=== PATIENT | male | born 1970 | race Caucasian/White ===

== ENCOUNTER → 2017-03-25 15:09 | Outpatient (CLI) | payer BC, SELFPAY ==
[2017-03-25 19:05] LABS: ALB/GLOB Ratio 0.9 RATIO (0.9-2.4); AST(SGOT) 24 U/L (15-37); Alanine Aminotransfer ALT/SGPT 38 U/L (16-61); Albumin, Serum 3.5 g/dL (3.2-5.0); Alkaline Phosphatase 73 U/L (45-117); Anion Gap 10 (5-15); BUN 13 mg/dL (7-18); BUN/Creat Ratio 13.8 RATIO (10-20); Chloride 104 mmol/L (98-107); Creatinine, Serum 0.94 mg/dL (0.70-1.30); EST Glomerular Filtration Rate 92 mL/min (>60); Est Glom Filt Rate - Afr Amer 112 mL/min (>60); Globulin 3.9 g/dL (2.2-4.2); Glucose 106 mg/dL (74-106); Potassium 3.7 mmol/L (3.5-5.1); Protein, Total 7.4 g/dL (6.4-8.2); Sodium Level 139 mmol/L (136-145)
[2017-03-25 19:13] LABS: Absolute Lymphocyte Count 4.06 X10^3/ul (0.83-4.51); Absolute Neutrophil Count 5.9 X10^3/uL (2.0-7.7); Basophil# 0.08 X10^3/uL; Basophil% 0.7 % (0-1); Eosinophil# 0.37 X10^3/uL; Eosinophils% 3.2 % (0-5); Hematocrit 45.9 % (40-54); Hemoglobin 15.7 g/dl (13.0-16.5); Lymphocyte # 4.06 X10^3/ul (4.0); Lymphocyte % 35.6 % (19-41); Mean Corp Hgb Conc 34.2 g/gl (32-36); Mean Corpuscular Hgb 28.4 pg (27.0-32.0); Mean Corpuscular Volume 83.2 fL (80-94); Mean Platelet Vol. 10.7 fl (6.2-12.0); Monocyte# 0.97 X10^3/uL; Monocyte% 8.5 % (0-10); Neutrophil % 51.8 % (47-70); Platelet Count 315 K/mm3 (150-450); RBC Distribution Width CV 14.4 % (11.6-14.6); RBC Distribution Width SD 43.7 fl (35.1-43.9); Red Blood Count 5.52 M/mm3 (4.6-6.2); White Blood Count 11.4 K/mm3 (4.4-11.0)
[2017-03-25 19:15] LABS: POSITIVE COUNT NO; POSITIVE DIFFERENTIAL NO; POSITIVE MORPHOLOGY NO
== END ==
PROVIDERS: Family Provider Family Medicine; PCP Family Medicine; Visit Provider Internal Medicine Rheumatology
DX: M06.09 Rheumatoid arthritis without rheumatoid factor, multiple sites (principal); Z79.899 Other long term (current) drug therapy; Q66.7 Congenital pes cavus; M47.897 Other spondylosis, lumbosacral region
CPT/HCPCS: 36415; 80053; 85025

== ENCOUNTER → 2017-09-09 10:20 | Outpatient (CLI) | payer BC, SELFPAY ==
[2017-09-09 12:39] LABS: Absolute Lymphocyte Count 3.08 X10^3/ul (0.83-4.51); Absolute Neutrophil Count 7.3 X10^3/uL (2.0-7.7); Basophil# 0.06 X10^3/uL; Basophil% 0.5 % (0-1); Eosinophil# 0.41 X10^3/uL; Eosinophils% 3.4 % (0-5); Hematocrit 43.7 % (40-54); Hemoglobin 15.1 g/dl (13.0-16.5); Lymphocyte # 3.08 X10^3/ul (4.0); Lymphocyte % 25.6 % (19-41); Mean Corp Hgb Conc 34.6 g/gl (32-36); Mean Corpuscular Hgb 28.9 pg (27.0-32.0); Mean Corpuscular Volume 83.6 fL (80-94); Mean Platelet Vol. 10.8 fl (6.2-12.0); Monocyte# 1.11 X10^3/uL; Monocyte% 9.2 % (0-10); Neutrophil # 7.34 X10^3/uL (2.7-7.7); Neutrophil % 61.1 % (47-70); Platelet Count 311 K/mm3 (150-450); RBC Distribution Width CV 14.6 % (11.6-14.6); RBC Distribution Width SD 44.4 fl (35.1-43.9); Red Blood Count 5.23 M/mm3 (4.6-6.2)
[2017-09-09 12:52] LABS: POSITIVE COUNT NO; POSITIVE DIFFERENTIAL NO; POSITIVE MORPHOLOGY NO
[2017-09-09 13:15] LABS: AST(SGOT) 23 U/L (15-37); Alanine Aminotransfer ALT/SGPT 32 U/L (16-61); Albumin, Serum 3.4 g/dL (3.2-5.0); Alkaline Phosphatase 71 U/L (45-117); Anion Gap 10 (5-15); BUN 9 mg/dL (7-18); BUN/Creat Ratio 10.3 RATIO (10-20); Calcium,Total 9.1 mg/dL (8.5-10.1); Chloride 107 mmol/L (98-107); Creatinine, Serum 0.87 mg/dL (0.70-1.30); EST Glomerular Filtration Rate 100 mL/min (>60); Est Glom Filt Rate - Afr Amer 121 mL/min (>60); Globulin 3.5 g/dL (2.2-4.2); Glucose 101 mg/dL (74-106); Protein, Total 6.9 g/dL (6.4-8.2); Sodium Level 144 mmol/L (136-145)
== END ==
PROVIDERS: Family Provider Family Medicine; PCP Family Medicine; Visit Provider Internal Medicine Rheumatology
DX: M06.09 Rheumatoid arthritis without rheumatoid factor, multiple sites (principal); Z79.899 Other long term (current) drug therapy; Q66.7 Congenital pes cavus; M47.897 Other spondylosis, lumbosacral region
CPT/HCPCS: 36415; 80053; 85025

== ENCOUNTER → 2017-12-02 08:19 | Outpatient (CLI) | payer BC, SELFPAY ==
[2017-12-02 10:57] LABS: Absolute Lymphocyte Count 4.51 X10^3/ul (0.83-4.51); Basophil# 0.05 X10^3/uL; Basophil% 0.4 % (0-1); Eosinophil# 0.41 X10^3/uL; Eosinophils% 3.3 % (0-5); Hematocrit 45.3 % (40-54); Hemoglobin 15.1 g/dl (13.0-16.5); Lymphocyte # 4.51 X10^3/ul (4.0); Mean Corp Hgb Conc 33.3 g/gl (32-36); Mean Corpuscular Hgb 28.4 pg (27.0-32.0); Mean Corpuscular Volume 85.2 fL (80-94); Mean Platelet Vol. 10.1 fl (6.2-12.0); Monocyte# 1.54 X10^3/uL; Monocyte% 12.3 % (0-10); Neutrophil # 5.98 X10^3/uL (2.7-7.7); Neutrophil % 47.8 % (47-70); Platelet Count 309 K/mm3 (150-450); RBC Distribution Width CV 13.8 % (11.6-14.6); RBC Distribution Width SD 42.7 fl (35.1-43.9); Red Blood Count 5.32 M/mm3 (4.6-6.2); White Blood Count 12.5 K/mm3 (4.4-11.0)
[2017-12-02 10:58] LABS: Differential Indicated SCAN CRITERIA MET; POSITIVE COUNT NO; POSITIVE DIFFERENTIAL YES; POSITIVE MORPHOLOGY NO
[2017-12-02 11:17] LABS: AST(SGOT) 21 U/L (15-37); Alanine Aminotransfer ALT/SGPT 30 U/L (16-61); Albumin, Serum 3.5 g/dL (3.2-5.0); Alkaline Phosphatase 72 U/L (45-117); Anion Gap 8 (5-15); BUN 11 mg/dL (7-18); BUN/Creat Ratio 11.9 RATIO (10-20); Chloride 100 mmol/L (98-107); Creatinine, Serum 0.92 mg/dL (0.70-1.30); EST Glomerular Filtration Rate 94 mL/min (>60); Est Glom Filt Rate - Afr Amer 114 mL/min (>60); Globulin 3.6 g/dL (2.2-4.2); Glucose 93 mg/dL (74-106); Potassium 3.6 mmol/L (3.5-5.1); Protein, Total 7.1 g/dL (6.4-8.2); Sodium Level 138 mmol/L (136-145)
[2017-12-02 11:53] LABS: Platelet Estimate A (ADEQ); Red Cell Morphology NORM C+C NORMAL (NORM C&C)
[2017-12-04 15:28] LABS: Pathologist Review Reviewed
== END ==
PROVIDERS: Family Provider Family Medicine; PCP Family Medicine; Referring Provider Internal Medicine Rheumatology; Visit Provider Internal Medicine Rheumatology
DX: M06.09 Rheumatoid arthritis without rheumatoid factor, multiple sites (principal); Z79.899 Other long term (current) drug therapy; Q66.7 Congenital pes cavus; M47.897 Other spondylosis, lumbosacral region
CPT/HCPCS: 36415; 80053; 85025

== ENCOUNTER → 2018-03-04 12:04 | Outpatient (CLI) | payer BC, SELFPAY ==
[2018-03-04 14:06] LABS: Absolute Lymphocyte Count 5.89 X10^3/ul (0.83-4.51); Absolute Neutrophil Count 9.2 X10^3/uL (2.0-7.7); Basophil# 0.05 X10^3/uL; Basophil% 0.3 % (0-1); Eosinophil# 0.35 X10^3/uL; Lymphocyte # 5.89 X10^3/ul (4.0); Lymphocyte % 34.1 % (19-41); Mean Corpuscular Hgb 28.7 pg (27.0-32.0); Mean Corpuscular Volume 84.4 fL (80-94); Mean Platelet Vol. 10.5 fl (6.2-12.0); Monocyte% 9.9 % (0-10); Neutrophil # 9.19 X10^3/uL (2.7-7.7); Neutrophil % 53.3 % (47-70); Platelet Count 351 K/mm3 (150-450); RBC Distribution Width CV 14.9 % (11.6-14.6); RBC Distribution Width SD 45.5 fl (35.1-43.9); Red Blood Count 5.57 M/mm3 (4.6-6.2); White Blood Count 17.3 K/mm3 (4.4-11.0)
[2018-03-04 14:08] LABS: Differential Indicated SCAN CRITERIA MET; POSITIVE COUNT NO; POSITIVE DIFFERENTIAL YES; POSITIVE MORPHOLOGY NO
[2018-03-04 14:15] LABS: AST(SGOT) 18 U/L (15-37); Alanine Aminotransfer ALT/SGPT 36 U/L (16-61); Albumin, Serum 3.6 g/dL (3.2-5.0); Alkaline Phosphatase 84 U/L (45-117); Anion Gap 5 (5-15); BUN 8 mg/dL (7-18); BUN/Creat Ratio 8.7 RATIO (10-20); Calcium,Total 8.7 mg/dL (8.5-10.1); Chloride 106 mmol/L (98-107); Creatinine, Serum 0.92 mg/dL (0.70-1.30); EST Glomerular Filtration Rate 94 mL/min (>60); Est Glom Filt Rate - Afr Amer 114 mL/min (>60); Globulin 3.5 g/dL (2.2-4.2); Glucose 68 mg/dL (74-106); Potassium 3.5 mmol/L (3.5-5.1); Protein, Total 7.1 g/dL (6.4-8.2); Sodium Level 142 mmol/L (136-145)
[2018-03-04 14:32] LABS: Differential Comment SCANNED
--- OUTSIDE RECORDS SUMMARY | 2018-05-06 15:56 | XMS RPT_ITS ---
:1970 Author Organization OHIP Care Team Providers Name Role Phone Alysia Reyes Attending Unavailable Alysia Reyes Referring Unavailable SHEETS CULLEN Primary Care Unavailable Alysia Reyes Attending Unavailable Vishal Reyesma Referring Unavailable SHEETS, CULLEN Primary Care Unavailable Eric, Alysia Attending Unavailable Eric, Alysia Referring Unavailable SHEETS, CULLEN Primary Care Unavailable Eric, Alysia Attending Unavailable Eric, Alysia Referring Unavailable SHEETS, CULLEN Primary Care Unavailable SHEETSCULLEN C Attending Unavailable CULLEN MELENDREZ C Referring Unavailable PROBLEMS PROBLEMS DATE TYPE CONDITION / CODE ATTENDING STATUS SOURCE 08/13/2016 Active Chronic pain SHEETS, Active [facility] syndrome / CULLEN [place] Other [place] G89.4(ICD-10) Repository 03/04/2018 Active Herpesviral SHEETS, Active [facility] vesicular [facility] dermatitis / Repository B00.1(ICD-10) 03/04/2018 Active Myalgia, SHEETS, Active [facility] unspecified site CULLEN [facility] / M79.10(ICD-10) Repository 03/04/2018 Unknown M06.09 - Alysia Reyes Active [facility] arthritis without Hospital rheumatoid Repository factor, multiple sites / M06.09(ICD-10) 03/04/2018 Unknown Z79.899 - Other Alysia Reyes Active [facility] (current[facility] drug [facility] therapy / Repository Z79.899(ICD-10) 03/04/2018 Unknown 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 - Alysia Reyes Active [facility] cavus / Hospital Q66.7(ICD-10) Repository 03/04/2018 Unknown M47.897 - Other Alysia Reeys Active [facility] spondylosis, [facility] lumbosacral Hospital region / Repository M47.897(ICD-10) PROCEDURES PROCEDURES No Procedure Records FoundRESULTS RESULTS PROGRESS Observed: 03/04/2018 Status: COMPLETED Source: [place] 3:22 PM [facility] [place] REPOSITORY HNO ID: [id number] Author: Cullen Farrukh Parvin Service: (none) Author Type: Physician Type: Progress Notes Filed: 03/06/2018 10:24 AM Note Text: Subjective The history is provided by the patient. Pt is here for f/u for multiple joint pain due to rheumatoid arthritis. He is under the care of a erp programmer, sees her regularly. Takes orencia to control his RA symptoms. He has breakthrough pain, especially in his feet b/l. He is using tramadol as needed, which helps to control the pain. He also takes mobic daily, and prednisone as needed when the pain is 9/10. 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 Pt gets occasional cold sores, would like refill of acyclovir ointment. Review of Systems Constitutional: Negative for chills, diaphoresis, fever, malaise/fatigue and weight loss. HENT: Negative for ear pain and hearing loss. Eyes: Negative for blurred vision and double vision. Respiratory: Negative for cough and shortness of breath. Cardiovascular: Negative for chest pain, palpitations and leg swelling. Gastrointestinal: Negative for constipation, diarrhea and heartburn. Genitourinary: Negative for dysuria and frequency. Musculoskeletal: Positive for back pain. Negative for falls, joint pain and myalgias. B/l foot pain Skin: Negative for itching and rash. Neurological: Negative for dizziness, weakness and headaches. Endo/Heme/Allergies: Does not bruise/bleed easily. Psychiatric/Behavioral: Negative for depression and substance abuse. The patient does not have insomnia. Objective BP 110/62 Pulse 75 Temp 36.3 ?C (97.4 ?F) (Oral) Resp 16 Ht 167.6 cm (5' 6) Wt 71.2 kg (157 lb) SpO2 98% BMI 25.34 kg/m? Physical Exam Constitutional: He is oriented to person, place, and time and well-developed, well-nourished, and in no distress. HENT: Head: Normocephalic and atraumatic. Mouth/Throat: Normal dentition. Eyes: Pupils are equal, round, and reactive to light. Conjunctivae, EOM and lids are normal. Neck: Normal range of motion and phonation normal. Neck supple. Carotid bruit is not present. No edema present. No thyroid mass and no thyromegaly present. Cardiovascular: Normal rate, regular rhythm, normal heart sounds and intact distal pulses. Exam reveals no gallop and no friction rub. No murmur heard. Pulmonary/Chest: Effort normal and breath sounds normal. He has no wheezes. He has no rales. Abdominal: Soft. Normal appearance and bowel sounds are normal. He exhibits no distension and no mass. There is no tenderness. Musculoskeletal: Normal range of motion. He exhibits no edema or tenderness. Lymphadenopathy: He has no cervical adenopathy. Neurological: He is alert and oriented to person, place, and time. He has normal motor skills. No cranial nerve deficit. Gait normal. Coordination normal. Skin: Skin is warm and dry. No rash noted. No cyanosis or erythema. Nails show no clubbing. Psychiatric: Mood, affect and judgment normal. ASSESSMENT/PLAN: 1. Rheumatoid arthritis involving multiple sites with positive rheumatoid factor (HCC) - ICD9: 714.0, ICD10: M05.79 (primary diagnosis) Continue to see erp programmer, on orencia, takes tramadol as needed for pain 2. Chronic pain syndrome - ICD9: 338.4, ICD10: G89.4 - TRAMADOL 50 MG TABLET 3. Myalgia - ICD9: 729.1, ICD10: M79.10 - CYCLOBENZAPRINE 10 MG TABLET 4. Herpes labialis - ICD9: 054.9, ICD10: B00.1 - ACYCLOVIR 5 % TOPICAL OINTMENT 5. Drug-induced erectile dysfunction - ICD9: 607.84, E980.5, ICD10: N52.2 sildanefil as needed Cullen Melendrez DO CNOV Observed: 03/04/2018 Status: COMPLETED Source: [place] 2:40 PM [facility] REPOSITORY Office Visit (TAMANNA) RANDALL RAMOS ([id number]) 1970 M Date Time Provider Department 03/04/18 2:40 PM CULLEN MELENDREZ During your visit today, we recorded the following information about you: Temperature Pulse Respiration Blood pressure 97.4 degrees 75/minute 16/minute 110/62 Weight Height 71.2 kg 1.676 m Umesh German MA 03/04/2018 3:22 PM Signed Pt presents for 6 mth fu from 09/17/17 on Hyperlidiemia and Rheumatoid Arthritis. KELSEY Talley DO 03/06/2018 10:24 AM Signed Subjective The history is provided by the patient. Pt is here for f/u for multiple joint pain due to rheumatoid arthritis. He is under the care of a erp programmer, sees her regularly. Takes orencia to control his RA symptoms. He has breakthrough pain, especially in his feet b/l. He is using tramadol as needed, which helps to control the pain. He also takes mobic daily, and prednisone as needed when the pain is 9/10. 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 Pt gets occasional cold sores, would like refill of acyclovir ointment. Review of Systems Constitutional: Negative for chills, diaphoresis, fever, malaise/fatigue and weight loss. HENT: Negative for ear pain and hearing loss. Eyes: Negative for blurred vision and double vision. Respiratory: Negative for cough and shortness of breath. Cardiovascular: Negative for chest pain, palpitations and leg swelling. Gastrointestinal: Negative for constipation, diarrhea and heartburn. Genitourinary: Negative for dysuria and frequency. Musculoskeletal: Positive for back pain. Negative for falls, joint pain and myalgias. B/l foot pain Skin: Negative for itching and rash. Neurological: Negative for dizziness, weakness and headaches. Endo/Heme/Allergies: Does not bruise/bleed easily. Psychiatric/Behavioral: Negative for depression and substance abuse. The patient does not have insomnia. Objective BP 110/62 Pulse 75 Temp 36.3 ?C (97.4 ?F) (Oral) Resp 16 Ht 167.6 cm (5' 6) Wt 71.2 kg (157 lb) SpO2 98% BMI 25.34 kg/m? Physical Exam Constitutional: He is oriented to person, place, and time and well-developed, well-nourished, and in no distress. HENT: Head: Normocephalic and atraumatic. Mouth/Throat: Normal dentition. Eyes: Pupils are equal, round, and reactive to light. Conjunctivae, EOM and lids are normal. Neck: Normal range of motion and phonation normal. Neck supple. Carotid bruit is not present. No edema present. No thyroid mass and no thyromegaly present. Cardiovascular: Normal rate, regular rhythm, normal heart sounds and intact distal pulses. Exam reveals no gallop and no friction rub. No murmur heard. Pulmonary/Chest: Effort normal and breath sounds normal. He has no wheezes. He has no rales. Abdominal: Soft. Normal appearance and bowel sounds are normal. He exhibits no distension and no mass. There is no tenderness. Musculoskeletal: Normal range of motion. He exhibits no edema or tenderness. Lymphadenopathy: He has no cervical adenopathy. Neurological: He is alert and oriented to person, place, and time. He has normal motor skills. No cranial nerve deficit. Gait normal. Coordination normal. Skin: Skin is warm and dry. No rash noted. No cyanosis or erythema. Nails show no clubbing. Psychiatric: Mood, affect and judgment normal. ASSESSMENT/PLAN: 1. Rheumatoid arthritis involving multiple sites with positive rheumatoid factor (HCC) - ICD9: 714.0, ICD10: M05.79 (primary diagnosis) Continue to see erp programmer, on orencia, takes tramadol as needed for pain 2. Chronic pain syndrome - ICD9: 338.4, ICD10: G89.4 - TRAMADOL 50 MG TABLET 3. Myalgia - ICD9: 729.1, ICD10: M79.10 - CYCLOBENZAPRINE 10 MG TABLET 4. Herpes labialis - ICD9: 054.9, ICD10: B00.1 - ACYCLOVIR 5 % TOPICAL OINTMENT 5. Drug-induced erectile dysfunction - ICD9: 607.84, E980.5, ICD10: N52.2 sildanefil as needed Cullen Melendrez DO Referring Provider: CULLEN MELENDREZ [[id number]] Allergies As of Date: 03/04/2018 (No Known Allergies) Date Reviewed: 03/04/2018 Reviewed by: Cullen Melendrez - Fully Assessed Reason for Visit: Hyperlipidemia [245] Cmt: 6 mth fu from 09/17/17 Arthritis [10] Reason For Visit History Recorded Primary Visit Diagnosis:Rheumatoid arthritis involving multiple sites with positive rheumatoid factor (HCC) [M05.79] Other Visit Diagnoses:Chronic pain syndrome [G89.4] Myalgia [M79.10] Herpes labialis [B00.1] Drug-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] Order(s):traMADol (ULTRAM) 50 mg tabletTake 1 tablet by mouth every 6 hours as needed for up to 30 days. Do not fill until 03/06/18Disp: 120 tabletRfl: 0 cyclobenzaprine (FLEXERIL) 10 mg tabletTake 1 tablet by mouth three times daily.Disp: 90 tabletRfl: 11 acyclovir (ZOVIRAX) 5 % ointmentApply 1 application to affected area five times daily.Disp: 30 gRfl: 0 Prescriptions as of 03/04/2018 Sig: TRAMADOL 50 MG TABLET Take 1 tablet by mouth every * CYCLOBENZAPRINE 10 MG TABLET Take 1 tablet by mouth three * SILDENAFIL (ANTIHYPERTENSIVE)* Take 1 tablet by mouth as nee* PREDNISONE 10 MG TABLET Take 1 tablet by mouth once d* MELOXICAM 15 MG TABLET Take 1 tablet by mouth once d* ORENCIA CLICKJECT 125 MG/ML S* ACYCLOVIR 5 % TOPICAL OINTMENT Apply 1 application to affect* Problem List As Of Date 03/04/2018 Noted Resolved Thrush [B37.0] INVALID FOR*02/13/2016 Acute laryngitis [J04.0] INVALID FOR*02/13/2016 Sore throat [J02.9] INVALID FOR*02/13/2016 Polyarticular juvenile rheumatoid arthritis, 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-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] INVALID FOR* Rheumatoid arthritis of multiple sites without *INVALID FOR*02/13/2016 Rheumatoid arthritis involving multiple sites w*INVALID FOR* Thrush, oral [B37.0] INVALID FOR*11/13/2016 Chronic pain syndrome [G89.4] INVALID FOR* Moderate cigarette smoker [F17.210] INVALID FOR* Hypertriglyceridemia [E78.1] INVALID FOR* Herpes labialis [B00.1] INVALID FOR* Visit Notes: >> Umesh Lopez Mar 04, 2018 2:55 PM Status: Signed Pt presents for 6 mth fu from 09/17/17 on Hyperlidiemia and Rheumatoid Arthritis. Umesh German MA Prescriptions ordered this encounter Disp Refills Start End TRAMADOL 50 MG TABLET 120 * 0 03/04/2018 04/03/2018 Class: Print RX Route: ORAL Sig: Take 1 tablet by mouth every 6 hours as needed for up to 30 days. Do not fill until 03/06/18 CYCLOBENZAPRINE 10 MG TABLET 90 t* 11 03/04/2018 Route: ORAL Sig: Take 1 tablet by mouth three times daily. ACYCLOVIR 5 % TOPICAL OINTMENT 30 g 0 03/04/2018 Route: TOPICAL Sig: Apply 1 application to affected area five times daily. Medications Discontinued During This Encounter sildenafil (REVATIO) 20 mg tablet 60 t* 0 02/06/2018 03/04/2018 Route: ORAL Sig: TAKE 1 TABLET BY MOUTH NEEDED. UP TO 3 TABLETS DAILY NEEDED Patient not taking: Reported on 03/04/2018 Disc: Reason for discontinue is not on file. traMADol (ULTRAM) 50 mg tablet 120 * 0 02/06/2018 03/04/2018 Class: Call Rx Cmt: Not to exceed 5 additional fills before 07/08/2018 Sig: TAKE 1 TABLET BY MOUTH EVERY 6 HOURS NEEDED Disc: Reason for discontinue is not on file. cyclobenzaprine (FLEXERIL) 10 mg tab* 90 t* 11 10/18/2016 03/04/2018 Route: ORAL Sig: Take 1 tablet by mouth three times daily. Disc: Reason for discontinue is not on file. Encounter Status:Closed by CULLEN MELENDREZ DO on 03/06/18 CBC W/DIFF, AUTOMATED Collected: 03/04/2018 Status: F Source: [place] 12:08 PM [facility] REPOSITORY TYPE CODE TESTS RESULT OUT OF RANGE REFERENCE UNITS LAB L100.1000 4.4-11.0 K/mm3 High WBC 17.3 LAB L100.1200 4.6-6.2 M/mm3 Normal RBC 5.57 LAB L100.1300 13.0-16.5 g/dl Normal HGB 16.0 LAB L100.1400 40-54 % Normal HCT 47.0 LAB L100.1500 80-94 fL Normal MCV 84.4 LAB L100.1600 27.0-32.0 pg Normal MCH 28.7 LAB L100.1700 32-36 g/gl Normal MCHC 34.0 LAB L100.1810 11.6-14.6 % High RDW CV 14.9 LAB L100.1820 35.1-43.9 fl High RDW SD 45.5 LAB L100.1900 150-450 K/mm3 Normal PLT 351 LAB L100.2000 6.2-12.0 fl Normal MPV 10.5 LAB L100.2100 47-70 % Normal NEUT% 53.3 LAB L100.2200 19-41 % Normal LY% 34.1 LAB L100.2300 0-10 % Normal MONO% 9.9 LAB L100.2400 0-5 % Normal EO% 2.0 LAB L100.2500 0-1 % Normal BASO% 0.3 LAB L100.2550 0.0-0.9 % Normal IM GRAN % 0.400 Result Comment: IG% - Immature Granulocytes (promyelocytes, myelocytes and metamyelocytes) > 1% indicates that a LEFT SHIFT is Present. LAB L100.2620 2.0-7.7 X10 3/uL High Absolute Neut 9.2 LAB L100.2720 0.83-4.51 X10 3/ul High Absolute Lymph 5.89 LAB L100.4500 Normal SMEAR COMMENT SCANNED Performed By: #### L100.0100 #### [facility] [address] [place], [address] COMPREHENSIVE METABOLIC Collected: 03/04/2018 Status: F Source: [place] [facility] 12:08 PM [facility] REPOSITORY TYPE CODE TESTS RESULT OUT OF RANGE REFERENCE UNITS LAB L501.0100 74-106 mg/dL Low GLU 68 Result Comment: Please note revised GLUCOSE reference range effective 2017. LAB L501.1000 7-18 mg/dL Normal BUN 8 LAB L501.1100 0.70-1.30 mg/dL Normal CREAT,SERUM 0.92 Result Comment: The validity of the calculated GFR AND GFRAA in patients over 70 years has not been determined. Clinical correlation is essential. LAB L501.1110 >60 mL/min Normal EST GFR 94 Result Comment: Non- GFR Calc LAB L501.1115 >60 mL/min Normal EST GFR - AA 114 Result Comment: GFR Calc LAB L501.1300 10-20 RATIO Low BUN/CRE 8.7 LAB L501.1500 6.4-8.2 g/dL Normal T PROT 7.1 LAB L501.1800 3.2-5.0 g/dL Normal ALB 3.6 LAB L501.1950 2.2-4.2 g/dL Normal GLOB 3.5 LAB L501.2000 0.9-2.4 RATIO Normal A/G 1.0 LAB L501.2200 8.5-10.1 mg/dL Normal CA 8.7 LAB L501.4100 15-37 U/L Normal AST 18 LAB L501.4305 45-117 U/L Normal ALK P 84 LAB L501.4405 16-61 U/L Normal ALT 36 LAB L501.4600 0.20-1.00 mg/dL Normal T BILI 0.80 LAB L501.5300 136-145 mmol/L Normal NA 142 LAB L501.5600 3.5-5.1 mmol/L Normal K 3.5 LAB L501.5900 98-107 mmol/L Normal CL 106 LAB L501.6100 21.0-32.0 mmol/L Normal CO2 31.0 LAB L501.6200 5-15 Normal GAP 5 Performed By: #### L500.4050 #### [facility] [address] [place], [address] CNCO Observed: 02/28/2018 Status: COMPLETED Source: [place] 12:00 AM [facility] REPOSITORY Letter Text [address] [address] Dept Dept Cullen Melendrez, DO [facility] -[address] [place] [id number] - - February 28, 2018 Randall Ramos [address] [facility] [address] 1970 Dear Randall Ramos, We missed seeing you for a scheduled appointment on 02/28/[address] Cullen Melendrez. [facility] strives to offer the best possible care for all of our patients, so we are concerned when scheduled appointments are missed. We understand that circumstances may arise which make it impossible to keep or arrive on time for a scheduled appointment. Should this happen in the future, please call us as soon as possible so we can either reschedule or cancel your appointment in a timely manner. The earlier you let us know, the more likely we can offer your appointment time to another patient. Patients who don't cancel scheduled appointments at least 24 hours in advance or who show up too late past their appointment time to be seen, are considered No Show cancellations. [facility] is committed to ensuring that our patients have access to our healthcare services. Patients who repeatedly miss scheduled appointments or routinely show up late may be released from the practice. Sincerely, Cullen Melendrez D.O. (Signed electronically to expedite mailing) RULA Observed: 02/28/2018 Status: COMPLETED Source: [place] 12:00 AM [facility] REPOSITORY Telephone (AGFAMPLE) RANDALL RAMOS ([id number]) 1970 M Date Time Provider Department 02/28/18 CULLEN MELENDREZ During your visit today, we recorded the following information about you: Merari Lundberg 02/28/2018 2:20 PM Signed No Show Documentation Randall Ramos no showed for an appointment on 02/28/18 with Cullen Melendrez DO at 1:20 pm. He was scheduled for follow up for medication review. I called and spoke with the patient regarding his missed appointment. Randall stated the reason that he missed his appointment was because forgot about appointment . Resources discussed/offered to patient: to contact the office to reschedule. No show determined to be fault of patient: Yes This is the patients first no show in the last 12 months. Patient was rescheduled for not at this time. Letter mailed : Yes Line Maintainer Section/coordinator and/or ombudsman contacted : No Merari Gannoncheryltyler February 28, 2018 2:17 PM Cullen Melendrez DO 02/28/2018 2:38 PM Signed Please notify pt that he will need to be seen before he can get refill of tramadol thanks Cullen Melendrez DO Allergies As of Date: 02/28/2018 (No Known Allergies) Date Reviewed: 09/17/2017 Reviewed by: Cullen Melendrez - Fully Assessed Reason for Visit: Missed Appointment [1304] Prescriptions as of 02/28/2018 Sig: TRAMADOL 50 MG TABLET TAKE 1 TABLET BY MOUTH EVERY * SILDENAFIL (ANTIHYPERTENSIVE)* TAKE 1 TABLET BY MOUTH NEE* SILDENAFIL (ANTIHYPERTENSIVE)* Take 1 tablet by mouth as nee* PREDNISONE 10 MG TABLET Take 1 tablet by mouth once d* CYCLOBENZAPRINE 10 MG TABLET Take 1 tablet by mouth three * MELOXICAM 15 MG TABLET Take 1 tablet by mouth once d* ORENCIA CLICKJECT 125 MG/ML S* Problem List As Of Date 02/28/2018 Noted Resolved Thrush [B37.0] INVALID FOR*02/13/2016 Acute laryngitis [J04.0] INVALID FOR*02/13/2016 Sore throat [J02.9] INVALID FOR*02/13/2016 Polyarticular juvenile rheumatoid arthritis, 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-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] INVALID FOR* Rheumatoid arthritis of multiple sites without *INVALID FOR*02/13/2016 Rheumatoid arthritis involving multiple sites w*INVALID FOR* Thrush, oral [B37.0] INVALID FOR*11/13/2016 Chronic pain syndrome [G89.4] INVALID FOR* Moderate cigarette smoker [F17.210] INVALID FOR* Hypertriglyceridemia [E78.1] INVALID FOR* Encounter Status:Closed by MERARI LUNDBERG on 02/28/18 OBSOLETE Observed: 02/05/2018 Status: COMPLETED Source: [place] 12:00 AM [facility] REPOSITORY Refill (AGFAMPLE) RANDALL RAMOS ([id number]) 1970 M Date Time Provider Department 02/05/18 CULLEN MELENDREZ During your visit today, we recorded the following information about you: Umesh German MA 02/06/2018 7:21 AM Signed Last ov 09/17/17. . Last filled 01/08/18. Pharmacy electronically requests the following refill(s) Pending Prescriptions Disp Refills TRAMADOL 50 MG TABLET 120 tablet 0 Sig: TAKE 1 TABLET BY MOUTH EVERY 6 HOURS NEEDED NELI Class: C-IV MIKKI: Yes SILDENAFIL (ANTIHYPERTENSIVE) 20 MG TABLET 60 tablet 0 Sig: TAKE 1 TABLET BY MOUTH NEEDED. UP TO 3 TABLETS DAILY NEEDED MIKKI: Yes KELSEY Talley DO 02/06/2018 7:36 PM Signed Please call in tramDO Umesh Durán MA 02/07/2018 7:22 AM Signed Rx phoned in. Umesh German MA Allergies As of Date: 02/05/2018 (No Known Allergies) Date Reviewed: 09/17/2017 Reviewed by: Cullen Melendrez - Fully Assessed Reason for Visit: Refill Request [94] Visit Diagnoses:Chronic pain syndrome [G89.4] Drug-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] Order(s):traMADol (ULTRAM) 50 mg tabletTAKE 1 TABLET BY MOUTH EVERY 6 HOURS NEEDEDDisp: 120 tabletRfl: 0 sildenafil (REVATIO) 20 mg tabletTAKE 1 TABLET BY MOUTH NEEDED. UP TO 3 TABLETS DAILY NEEDEDDisp: 60 tabletRfl: 0 Prescriptions as of 02/05/2018 Sig: SILDENAFIL (ANTIHYPERTENSIVE)* TAKE 1 TABLET BY MOUTH NEE* TRAMADOL 50 MG TABLET TAKE 1 TABLET BY MOUTH EVERY * CYCLOBENZAPRINE 10 MG TABLET Take 1 tablet by mouth three * MELOXICAM 15 MG TABLET Take 1 tablet by mouth once d* ORENCIA CLICKJECT 125 MG/ML S* PREDNISONE 10 MG TABLET Take 1 tablet by mouth once d* SILDENAFIL (ANTIHYPERTENSIVE)* Take 1 tablet by mouth as nee* Problem List As Of Date 02/05/2018 Noted Resolved Thrush [B37.0] INVALID FOR*02/13/2016 Acute laryngitis [J04.0] INVALID FOR*02/13/2016 Sore throat [J02.9] INVALID FOR*02/13/2016 Polyarticular juvenile rheumatoid arthritis, 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-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] INVALID FOR* Rheumatoid arthritis of multiple sites without *INVALID FOR*02/13/2016 Rheumatoid arthritis involving multiple sites w*INVALID FOR* Thrush, oral [B37.0] INVALID FOR*11/13/2016 Chronic pain syndrome [G89.4] INVALID FOR* Moderate cigarette smoker [F17.210] INVALID FOR* Hypertriglyceridemia [E78.1] INVALID FOR* Prescriptions ordered this encounter Disp Refills Start End TRAMADOL 50 MG TABLET 120 * 0 02/06/2018 03/08/2018 Class: Call Rx Cmt: Not to exceed 5 additional fills before 07/08/2018 Sig: TAKE 1 TABLET BY MOUTH EVERY 6 HOURS NEEDED SILDENAFIL (ANTIHYPERTENSIVE) 20 MG * 60 t* 0 02/06/2018 Route: ORAL Sig: TAKE 1 TABLET BY MOUTH NEEDED. UP TO 3 TABLETS DAILY NEEDED Medications Discontinued During This Encounter traMADol (ULTRAM) 50 mg tablet 120 * 0 01/08/2018 02/06/2018 Class: Print RX Cmt: Not to exceed 5 additional fills before 06/04/2018 Sig: TAKE 1 TABLET BY MOUTH EVERY 6 HOURS NEEDED Disc: Reason for discontinue is not on file. Encounter Status:Closed by UMESH GERMAN MA on 02/07/18 OBSOLETE Observed: 01/08/2018 Status: COMPLETED Source: [place] 12:00 AM [facility] REPOSITORY Refill (AGFAMPLE) RANDALL RAMOS ([id number]) 1970 M Date Time Provider Department 01/08/18 CULLEN MELENDREZ During your visit today, we recorded the following information about you: Karl Jennings CMA 01/08/2018 4:23 PM Signed Has OV 02/28/18. Last rx 12/06/17 Pharmacy electronically requests the following refill(s) Pending Prescriptions Disp Refills TRAMADOL 50 MG TABLET 120 tablet 0 Sig: TAKE 1 TABLET BY MOUTH EVERY 6 HOURS NEEDED NELI Class: C-IV MIKKI: Yes JUICE Washington DO 01/08/2018 6:39 PM Signed Please call in tramadol DO Karl Wadsworth CMA 01/09/2018 8:31 AM [facility]igned [facility] Allergies As of Date: 01/08/2018 (No Known Allergies) Date Reviewed: 09/17/2017 Reviewed by: Cullen Melendrez - Fully Assessed Reason for Visit: Refill Request [94] Primary Visit Diagnosis:Chronic pain syndrome [G89.4] Order(s):traMADol (ULTRAM) 50 mg tabletTAKE 1 TABLET BY MOUTH EVERY 6 HOURS NEEDEDDisp: 120 tabletRfl: 0 Prescriptions as of 01/08/2018 Sig: TRAMADOL 50 MG TABLET TAKE 1 TABLET BY MOUTH EVERY * SILDENAFIL (ANTIHYPERTENSIVE)* Take 1 tablet by mouth as nee* PREDNISONE 10 MG TABLET Take 1 tablet by mouth once d* CYCLOBENZAPRINE 10 MG TABLET Take 1 tablet by mouth three * MELOXICAM 15 MG TABLET Take 1 tablet by mouth once d* ORENCIA CLICKJECT 125 MG/ML S* Problem List As Of Date 01/08/2018 Noted Resolved Thrush [B37.0] INVALID FOR*02/13/2016 Acute laryngitis [J04.0] INVALID FOR*02/13/2016 Sore throat [J02.9] INVALID FOR*02/13/2016 Polyarticular juvenile rheumatoid arthritis, 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-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] INVALID FOR* Rheumatoid arthritis of multiple sites without *INVALID FOR*02/13/2016 Rheumatoid arthritis involving multiple sites w*INVALID FOR* Thrush, oral [B37.0] INVALID FOR*11/13/2016 Chronic pain syndrome [G89.4] INVALID FOR* Moderate cigarette smoker [F17.210] INVALID FOR* Hypertriglyceridemia [E78.1] INVALID FOR* Prescriptions ordered this encounter Disp Refills Start End TRAMADOL 50 MG TABLET 120 * 0 01/08/2018 02/07/2018 Class: Print RX Cmt: Not to exceed 5 additional fills before 06/04/2018 Sig: TAKE 1 TABLET BY MOUTH EVERY 6 HOURS NEEDED Encounter Status:Closed by KARL JENNINGS on 01/09/18 CNCO Observed: 12/23/2017 Status: COMPLETED Source: [place] 12:00 AM [facility] REPOSITORY Letter Text [address] [address] Dept Dept Cullen Melendrez DO [facility] -[address] [place] [id number] - - [address] [place] [address] 2017 Randall Ramos [address] [facility] [address] 1970 Dear Randall Ramos, We missed seeing you for a scheduled appointment on 12/23/[address] Melendrez. [facility] strives to offer the best possible care for all of our patients, so we are concerned when scheduled appointments are missed. We understand that circumstances may arise which make it impossible to keep or arrive on time for a scheduled appointment. Should this happen in the future, please call us as soon as possible so we can either reschedule or cancel your appointment in a timely manner. The earlier you let us know, the more likely we can offer your appointment time to another patient. Patients who don't cancel scheduled appointments at least 24 hours in advance or who show up too late past their appointment time to be seen, are considered No Show cancellations. [facility] is committed to ensuring that our patients have access to our healthcare services. Patients who repeatedly miss scheduled appointments or routinely show up late may be released from the practice. Sincerely, Cullen Melendrez D.O. (Signed electronically to expedite mailing) OBSOLETE Observed: 12/05/2017 Status: COMPLETED Source: [place] 12:00 AM [facility] REPOSITORY Refill (AGFAMPLE) RANDALL RAMOS ([id number]) 1970 M Date Time Provider Department 12/05/17 CULLEN MELENDREZ During your visit today, we recorded the following information about you: Jose Belle LPN 12/05/2017 3:38 PM Signed Last visit 09-17-17 Next visit 12-23-17 Pharmacy electronically requests the following refill(s) Pending Prescriptions Disp Refills SILDENAFIL (ANTIHYPERTENSIVE) 20 MG TABLET 60 tablet 0 Sig: TAKE 1 TABLET BY MOUTH NEEDED. UP TO 3 TABLETS DAILY NEEDED MIKKI: Yes TRAMADOL 50 MG TABLET 120 tablet 0 Sig: TAKE 1 TABLET BY MOUTH EVERY 6 HOURS NEEDED FOR PAIN NELI Class: C-IV MIKKI: Yes PINEDA De La Cruz DO 12/06/2017 11:45 AM Signed Please call in DO Jose Perezo, [employer]COMES LIAISON 12/06/2017 2:26 PM Signed Called into pharmacy Jose Belle LPN Allergies As of Date: 12/05/2017 (No Known Allergies) Date Reviewed: 09/17/2017 Reviewed by: Cullen Melendrez - Fully Assessed Reason for Visit: Refill Request [94] Visit Diagnoses:Drug-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] Rheumatoid arthritis involving multiple sites with positive rheumatoid factor (HCC) [M05.79] Order(s):sildenafil (REVATIO) 20 mg tabletTake 1 tablet by mouth as needed. Up to 3 tablets daily as neededDisp: 60 tabletRfl: 0 traMADol (ULTRAM) 50 mg tabletTake 1 tablet by mouth every 6 hours as needed for up to 31 days.Disp: 120 tabletRfl: 0 Prescriptions as of 12/05/2017 Sig: SILDENAFIL (ANTIHYPERTENSIVE)* Take 1 tablet by mouth as nee* TRAMADOL 50 MG TABLET Take 1 tablet by mouth every * PREDNISONE 10 MG TABLET Take 1 tablet by mouth once d* CYCLOBENZAPRINE 10 MG TABLET Take 1 tablet by mouth three * MELOXICAM 15 MG TABLET Take 1 tablet by mouth once d* ORENCIA CLICKJECT 125 MG/ML S* Problem List As Of Date 12/05/2017 Noted Resolved Thrush [B37.0] INVALID FOR*02/13/2016 Acute laryngitis [J04.0] INVALID FOR*02/13/2016 Sore throat [J02.9] INVALID FOR*02/13/2016 Polyarticular juvenile rheumatoid arthritis, 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 Up to 3 tablets daily as needed TRAMADOL 50 MG TABLET 120 * 0 12/06/2017 01/06/2018 Class: Call Rx Cmt: Not to exceed 5 additional fills before 05/13/2018 Route: ORAL Sig: Take 1 tablet by mouth every 6 hours as needed for up to 31 days. Medications Discontinued During This Encounter sildenafil, antihypertensive, (REVAT* 60 t* 0 10/15/2017 12/06/2017 Route: ORAL Sig: Take 1 tablet by mouth as needed. Up to 3 tablets daily as needed Disc: Reason for discontinue is not on file. traMADol (ULTRAM) 50 mg tablet 120 * 0 11/14/2017 12/06/2017 Class: Call Rx Cmt: Not to exceed 5 additional fills before 04/14/2018 Sig: TAKE 1 TABLET BY MOUTH EVERY 6 HOURS FOR UP TO 30 DAYS Disc: Reason for discontinue is not on file. Encounter Status:Closed by JOSE BELLE LPN on 12/06/17 CBC W/DIFF, AUTOMATED Collected: 12/02/2017 Status: C Source: [place] 8:21 AM [facility] REPOSITORY TYPE CODE TESTS RESULT OUT OF RANGE REFERENCE UNITS LAB L100.1000 4.4-11.0 K/mm3 High WBC 12.5 LAB L100.1200 4.6-6.2 M/mm3 Normal RBC 5.32 LAB L100.1300 13.0-16.5 g/dl Normal HGB 15.1 LAB L100.1400 40-54 % Normal HCT 45.3 LAB L100.1500 80-94 fL Normal MCV 85.2 LAB L100.1600 27.0-32.0 pg Normal MCH 28.4 LAB L100.1700 32-36 g/gl Normal MCHC 33.3 LAB L100.1810 11.6-14.6 % Normal RDW CV 13.8 LAB L100.1820 35.1-43.9 fl Normal RDW SD 42.7 LAB L100.1900 150-450 K/mm3 Normal PLT 309 LAB L100.2000 6.2-12.0 fl Normal MPV 10.1 LAB L100.2100 47-70 % Normal NEUT% 47.8 LAB L100.2200 19-41 % Normal LY% 36.0 LAB L100.2300 0-10 % High MONO% 12.3 LAB L100.2400 0-5 % Normal EO% 3.3 LAB L100.2500 0-1 % Normal BASO% 0.4 LAB L100.2550 0.0-0.9 % Normal IM GRAN % 0.200 Result Comment: IG% - Immature Granulocytes (promyelocytes, myelocytes and metamyelocytes) > 1% indicates that a LEFT SHIFT is Present. LAB L100.2620 2.0-7.7 X10 3/uL Normal Absolute Neut 6.0 LAB L100.2720 0.83-4.51 X10 3/ul Normal Absolute Lymph 4.51 LAB L100.4500 SMEAR Normal COMMENT Result Comment: MONOCYTES APPEAR SLIGHTLY ELEVATED LAB L100.5500 ADEQ A Normal PLT EST LAB L100.7000 NORM C AND NORMAL C Normal RED NORM C+C CELL MORPH LAB L100.9900 Normal PATH Reviewed REV Result Comment: Leukocytosis. Clinical correlation necessary. Juan José Horton M.D. 12/04/17 AMENDED REPORT 12/04/17 1527 PATH REV previously reported as: Светлана erickson Performed By: #### L100.0100 #### [facility] [address] [place], [address] COMPREHENSIVE METABOLIC Collected: 12/02/2017 Status: F Source: [facility] 8:21 AM [facility] REPOSITORY TYPE CODE TESTS RESULT OUT OF RANGE REFERENCE UNITS LAB L501.0100 74-106 mg/dL Normal GLU 93 Result Comment: Please note revised GLUCOSE reference range effective 2017. LAB L501.1000 7-18 mg/dL Normal BUN 11 LAB L501.1100 0.70-1.30 mg/dL Normal CREAT,SERUM 0.92 Result Comment: The validity of the calculated GFR AND GFRAA in patients over 70 years has not been determined. Clinical correlation is essential. LAB L501.1110 >60 mL/min Normal EST GFR 94 Result Comment: Non- GFR Calc LAB L501.1115 >60 mL/min Normal EST GFR - AA 114 Result Comment: GFR Calc LAB L501.1300 10-20 RATIO Normal BUN/CRE 11.9 LAB L501.1500 6.4-8.2 g/dL T Normal PROT 7.1 LAB L501.1800 3.2-5.0 g/dL Normal ALB 3.5 LAB L501.1950 2.2-4.2 g/dL Normal GLOB 3.6 LAB L501.2000 0.9-2.4 RATIO Normal A/G 1.0 LAB L501.2200 8.5-10.1 mg/dL CA Normal 9.0 LAB L501.4100 15-37 U/L Normal AST 21 LAB L501.4305 45-117 U/L Normal ALK P 72 LAB L501.4405 16-61 U/L Normal ALT 30 LAB L501.4600 0.20-1.00 mg/dL High T BILI 1.80 LAB L501.5300 136-145 mmol/L NA Normal 138 LAB L501.5600 3.5-5.1 mmol/L K Normal 3.6 LAB L501.5900 98-107 mmol/L CL Normal 100 LAB L501.6100 21.0-32.0 mmol/L Normal CO2 30.0 LAB L501.6200 5-15 Normal GAP 8 Performed By: #### L500.4050 #### [facility] [address] [place], [address] OBSOLETE Observed: 11/12/2017 Status: COMPLETED Source: [place] 12:00 AM [facility] REPOSITORY Refill (AGFAMPLE) RANDALL RAMOS ([id number]) 1970 M Date Time Provider Department 11/12/17 CULLEN MELENDREZ During your visit today, we recorded the following information about you: Karl Jennings CMA 11/13/2017 8:38 AM Signed Last rx 10/15/17. Has OV 12/23/17 UDS and pain management agreement signed 09/17/17 Pharmacy electronically requests the following refill(s) Pending Prescriptions Disp Refills TRAMADOL 50 MG TABLET 120 tablet 0 Sig: TAKE 1 TABLET BY MOUTH EVERY 6 HOURS FOR UP TO 30 DAYS NELI Class: C-IV MIKKI: Yes JUICE Washington DO 11/14/2017 2:14 PM Signed Please call in tramadol thanks DO Cathy Hernandez LPN 11/14/2017 2:26 PM Signed Rx. For Tramadol called to [facility] as prescribed. Cathy Maurer LPN Allergies As of Date: 11/12/2017 (No Known Allergies) Date Reviewed: 09/17/2017 Reviewed by: Cullen Melendrez - Fully Assessed Reason for Visit: Refill Request [94] Visit Diagnosis:Rheumatoid arthritis involving multiple sites with positive rheumatoid factor (HCC) [M05.79] Order(s):traMADol (ULTRAM) 50 mg tabletTAKE 1 TABLET BY MOUTH EVERY 6 HOURS FOR UP TO 30 DAYSDisp: 120 tabletRfl: 0 Prescriptions as of 11/12/2017 Sig: TRAMADOL 50 MG TABLET TAKE 1 TABLET BY MOUTH EVERY * SILDENAFIL (ANTIHYPERTENSIVE)* Take 1 tablet by mouth as nee* PREDNISONE 10 MG TABLET Take 1 tablet by mouth once d* CYCLOBENZAPRINE 10 MG TABLET Take 1 tablet by mouth three * MELOXICAM 15 MG TABLET Take 1 tablet by mouth once d* ORENCIA CLICKJECT 125 MG/ML S* Problem List As Of Date 11/12/2017 Noted Resolved Thrush [B37.0] INVALID FOR*02/13/2016 Acute laryngitis [J04.0] INVALID FOR*02/13/2016 Sore throat [J02.9] INVALID FOR*02/13/2016 Polyarticular juvenile rheumatoid arthritis, 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-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] INVALID FOR* Rheumatoid arthritis of multiple sites without *INVALID FOR*02/13/2016 Rheumatoid arthritis involving multiple sites w*INVALID FOR* Thrush, oral [B37.0] INVALID FOR*11/13/2016 Chronic pain syndrome [G89.4] INVALID FOR* Moderate cigarette smoker [F17.210] INVALID FOR* Hypertriglyceridemia [E78.1] INVALID FOR* Prescriptions ordered this encounter Disp Refills Start End TRAMADOL 50 MG TABLET 120 * 0 11/14/2017 12/14/2017 Class: Call Rx Cmt: Not to exceed 5 additional fills before 04/14/2018 Sig: TAKE 1 TABLET BY MOUTH EVERY 6 HOURS FOR UP TO 30 DAYS Medications Discontinued During This Encounter traMADol (ULTRAM) 50 mg tablet 120 * 0 10/15/2017 11/14/2017 Class: Call Rx Route: ORAL Sig: Take 1 tablet by mouth every 6 hours as needed for up to 30 days. Disc: Reason for discontinue is not on file. Encounter Status:Closed by CATHY MAURER on 11/14/17 OBSOLETE Observed: 10/16/2017 Status: COMPLETED Source: [place] 12:00 AM [facility] REPOSITORY Refill (AGFAMPLE) RANDALL RAMOS ([id number]) 1970 M Date Time Provider Department 10/16/17 CULLEN MELENDREZ During your visit today, we recorded the following information about you: Karl Jennings CMA 10/16/2017 2:20 PM Signed Both requests addressed in another encounter. Karl Jennings CMA Allergies As of Date: 10/16/2017 (No Known Allergies) Date Reviewed: 09/17/2017 Reviewed by: Cullen Melendrez - Fully Assessed Reason for Visit: Refill Request [94] Visit Diagnoses:Drug-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] Rheumatoid arthritis involving multiple sites with positive rheumatoid factor (HCC) [M05.79] Prescriptions as of 10/16/2017 Sig: SILDENAFIL (ANTIHYPERTENSIVE)* Take 1 tablet by mouth as nee* TRAMADOL 50 MG TABLET Take 1 tablet by mouth every * PREDNISONE 10 MG TABLET Take 1 tablet by mouth once d* CYCLOBENZAPRINE 10 MG TABLET Take 1 tablet by mouth three * MELOXICAM 15 MG TABLET Take 1 tablet by mouth once d* ORENCIA CLICKJECT 125 MG/ML S* Problem List As Of Date 10/16/2017 Noted Resolved Thrush [B37.0] INVALID FOR*02/13/2016 Acute laryngitis [J04.0] INVALID FOR*02/13/2016 Sore throat [J02.9] INVALID FOR*02/13/2016 Polyarticular juvenile rheumatoid arthritis, 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-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] INVALID FOR* Rheumatoid arthritis of multiple sites without *INVALID FOR*02/13/2016 Rheumatoid arthritis involving multiple sites w*INVALID FOR* Thrush, oral [B37.0] INVALID FOR*11/13/2016 Chronic pain syndrome [G89.4] INVALID FOR* Moderate cigarette smoker [F17.210] INVALID FOR* Hypertriglyceridemia [E78.1] INVALID FOR* Encounter Status:Closed by KARL JENNINGS on 10/16/17 OBSOLETE Observed: 10/15/2017 Status: COMPLETED Source: [place] 12:00 AM [facility] REPOSITORY Refill (AGFAMPLE) RANDALL RAMOS ([id number]) 1970 M Date Time Provider Department 10/15/17 CULLEN MELENDREZ During your visit today, we recorded the following information about you: Jesus Garcia CMA 10/15/2017 5:09 PM Signed Last seen 09/17/17, last filled 09/16/17. Patient phones requesting refills as follows: Pending Prescriptions Disp Refills SILDENAFIL (ANTIHYPERTENSIVE) 20 MG TABLET 60 tablet 0 Sig: Take 1 tablet by mouth as needed. Up to 3 tablets daily as needed MIKKI: No TRAMADOL 50 MG TABLET 120 tablet 0 Sig: Take 1 tablet by mouth every 6 hours as needed for up to 30 days. NELI Class: C-IV MIKKI: No Please review and advise. JUICE Leger DO 10/15/2017 5:19 PM Signed Please call in tramadol thanks DO Karl Hernandez CMA 10/16/2017 2:13 PM [facility]igned [facility] Allergies As of Date: 10/15/2017 (No Known Allergies) Date Reviewed: 09/17/2017 Reviewed by: Cullen Melendrez - Fully Assessed Reason for Visit: Refill Request [94] Visit Diagnoses:Drug-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] Rheumatoid arthritis involving multiple sites with positive rheumatoid factor (HCC) [M05.79] Order(s):sildenafil, antihypertensive, (REVATIO) 20 mg tabletTake 1 tablet by mouth as needed. Up to 3 tablets daily as neededDisp: 60 tabletRfl: 0 traMADol (ULTRAM) 50 mg tabletTake 1 tablet by mouth every 6 hours as needed for up to 30 days.Disp: 120 tabletRfl: 0 Prescriptions as of 10/15/2017 Sig: SILDENAFIL (ANTIHYPERTENSIVE)* Take 1 tablet by mouth as nee* TRAMADOL 50 MG TABLET Take 1 tablet by mouth every * PREDNISONE 10 MG TABLET Take 1 tablet by mouth once d* CYCLOBENZAPRINE 10 MG TABLET Take 1 tablet by mouth three * MELOXICAM 15 MG TABLET Take 1 tablet by mouth once d* ORENCIA CLICKJECT 125 MG/ML S* Problem List As Of Date 10/15/2017 Noted Resolved Thrush [B37.0] INVALID FOR*02/13/2016 Acute laryngitis [J04.0] INVALID FOR*02/13/2016 Sore throat [J02.9] INVALID FOR*02/13/2016 Polyarticular juvenile rheumatoid arthritis, 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 Up to 3 tablets daily as needed TRAMADOL 50 MG TABLET 120 * 0 10/15/2017 11/14/2017 Class: Call Rx Route: ORAL Sig: Take 1 tablet by mouth every 6 hours as needed for up to 30 days. Medications Discontinued During This Encounter sildenafil, antihypertensive, (REVAT* 60 t* 0 09/17/2017 10/15/2017 Route: ORAL Sig: Take 1 tablet by mouth as needed. Up to 3 tablets daily as needed Disc: Reason for discontinue is not on file. traMADol (ULTRAM) 50 mg tablet 120 * 0 09/17/2017 10/15/2017 Class: Print RX Route: ORAL Sig: Take 1 tablet by mouth every 6 hours as needed for up to 30 days. Disc: Reason for discontinue is not on file. Encounter Status:Closed by KARL JENNINGS on 10/16/17 PROGRESS Observed: 09/17/2017 Status: COMPLETED Source: [place] 9:12 AM [facility] REPOSITORY HNO ID: [id number] Author: Cullen Melendrez Service: (none) Author Type: Physician Type: Progress Notes Filed: 09/24/2017 1:40 PM Note Text: Subjective The history is provided by the patient. Pt is here for f/u for chronic pain due to rheumatoid arthritis. He sees Dr. Reyes, erp programmer, in [place]. He ran out of tramadol over 2 weeks ago, because he was not seen here, and pain today is 8/10. Pain is primarily in his knees, feet and fingers. He has been using advil to help with the pain. He will be applying for FMLA, because he is having trouble keeping up with his job due to pain. Does not want to start on fenofibrate because he does not want to start on any meds that may interfere with his RA or RA meds. Continues to smoke. Review of Systems Constitutional: Positive for malaise/fatigue. Negative for chills, diaphoresis, fever and weight loss. HENT: Negative for ear pain and hearing loss. Eyes: Negative for blurred vision and double vision. Respiratory: Negative for cough and shortness of breath. Cardiovascular: Negative for chest pain, palpitations and leg swelling. Gastrointestinal: Negative for constipation, diarrhea and heartburn. Genitourinary: Negative for dysuria and frequency. Musculoskeletal: Positive for joint pain and myalgias. Negative for back pain and falls. Skin: Negative for itching and rash. Neurological: Negative for dizziness, weakness and headaches. Endo/Heme/Allergies: Does not bruise/bleed easily. Psychiatric/Behavioral: Negative for depression and substance abuse. The patient does not have insomnia. Objective BP 98/68 Pulse 66 Temp 36.7 ?C (98 ?F) (Oral) Resp 16 Ht 167.6 cm (5' 6) Wt 69.9 kg (154 lb) BMI 24.86 kg/m? Physical Exam Constitutional: He is oriented to person, place, and time and well-developed, well-nourished, and in no distress. HENT: Mouth/Throat: Normal dentition. Eyes: Conjunctivae, EOM and lids are normal. Pupils are equal, round, and reactive to light. Neck: Normal range of motion and phonation normal. Neck supple. Carotid bruit is not present. No edema present. No thyroid mass and no thyromegaly present. Cardiovascular: Normal rate, regular rhythm, normal heart sounds and intact distal pulses. Exam reveals no gallop and no friction rub. No murmur heard. Pulmonary/Chest: Effort normal and breath sounds normal. He has no wheezes. He has no rales. Abdominal: Soft. Normal appearance and bowel sounds are normal. He exhibits no distension and no mass. There is no tenderness. Musculoskeletal: Normal range of motion. He exhibits no edema or tenderness. Lymphadenopathy: He has no cervical adenopathy. Neurological: He is alert and oriented to person, place, and time. He has normal motor skills. No cranial nerve deficit. Gait normal. Coordination normal. Skin: Skin is warm and dry. No rash noted. No cyanosis or erythema. Nails show no clubbing. Psychiatric: Mood, affect and judgment normal. ASSESSMENT/PLAN: 1. Rheumatoid arthritis involving multiple sites with positive rheumatoid factor (HCC) - ICD9: 714.0, ICD10: M05.79 (primary diagnosis) Pt has not had tramadol for 2 weeks. Urine drug screen ordered today Pain management contract updated today PDMP reviewed with no concerns - TRAMADOL 50 MG TABLET 2. Drug-induced erectile dysfunction - ICD9: 607.84, E980.5, ICD10: N52.2 - SILDENAFIL (ANTIHYPERTENSIVE) 20 MG TABLET 3. Hypertriglyceridemia - ICD9: 272.1, ICD10: E78.1 4. Moderate cigarette smoker - ICD9: 305.1, ICD10: F17.210 - Cessation encouraged. - Physiologic and physical aspects of tobacco addiction as well as strategies for quitting were discussed. - Counseling was given focusing on the harmful effects of this addiction especially given the patient's medical condition(s) which will be worsened because of the chemicals in tobacco. 5. Chronic pain syndrome - ICD9: 338.4, ICD10: G89.4 Cullen Melendrez DO CNOV Observed: 09/17/2017 Status: COMPLETED Source: [place] 8:40 AM [facility] REPOSITORY Office Visit (AGFAMPLE) RANDALL RAMOS ([id number]) 1970 M Date Time Provider Department 09/17/17 8:40 AM CULLEN MELENDREZ During your visit today, we recorded the following information about you: Temperature Pulse Respiration Blood pressure 98 degrees 66/minute 16/minute 98/68 Weight Height 69.9 kg 1.676 m Jesus Garcia CMA 09/17/2017 8:57 AM Addendum Patient here for f/u hyperlipids. Patient states usual achy today. JUICE Leger DO 09/24/2017 1:40 PM Signed Subjective The history is provided by the patient. Pt is here for f/u for chronic pain due to rheumatoid arthritis. He sees Dr. Reyes, erp programmer, in [place]. He ran out of tramadol over 2 weeks ago, because he was not seen here, and pain today is 8/10. Pain is primarily in his knees, feet and fingers. He has been using advil to help with the pain. He will be applying for FMLA, because he is having trouble keeping up with his job due to pain. Does not want to start on fenofibrate because he does not want to start on any meds that may interfere with his RA or RA meds. Continues to smoke. Review of Systems Constitutional: Positive for malaise/fatigue. Negative for chills, diaphoresis, fever and weight loss. HENT: Negative for ear pain and hearing loss. Eyes: Negative for blurred vision and double vision. Respiratory: Negative for cough and shortness of breath. Cardiovascular: Negative for chest pain, palpitations and leg swelling. Gastrointestinal: Negative for constipation, diarrhea and heartburn. Genitourinary: Negative for dysuria and frequency. Musculoskeletal: Positive for joint pain and myalgias. Negative for back pain and falls. Skin: Negative for itching and rash. Neurological: Negative for dizziness, weakness and headaches. Endo/Heme/Allergies: Does not bruise/bleed easily. Psychiatric/Behavioral: Negative for depression and substance abuse. The patient does not have insomnia. Objective BP 98/68 Pulse 66 Temp 36.7 ?C (98 ?F) (Oral) Resp 16 Ht 167.6 cm (5' 6) Wt 69.9 kg (154 lb) BMI 24.86 kg/m? Physical Exam Constitutional: He is oriented to person, place, and time and well-developed, well-nourished, and in no distress. HENT: Mouth/Throat: Normal dentition. Eyes: Conjunctivae, EOM and lids are normal. Pupils are equal, round, and reactive to light. Neck: Normal range of motion and phonation normal. Neck supple. Carotid bruit is not present. No edema present. No thyroid mass and no thyromegaly present. Cardiovascular: Normal rate, regular rhythm, normal heart sounds and intact distal pulses. Exam reveals no gallop and no friction rub. No murmur heard. Pulmonary/Chest: Effort normal and breath sounds normal. He has no wheezes. He has no rales. Abdominal: Soft. Normal appearance and bowel sounds are normal. He exhibits no distension and no mass. There is no tenderness. Musculoskeletal: Normal range of motion. He exhibits no edema or tenderness. Lymphadenopathy: He has no cervical adenopathy. Neurological: He is alert and oriented to person, place, and time. He has normal motor skills. No cranial nerve deficit. Gait normal. Coordination normal. Skin: Skin is warm and dry. No rash noted. No cyanosis or erythema. Nails show no clubbing. Psychiatric: Mood, affect and judgment normal. ASSESSMENT/PLAN: 1. Rheumatoid arthritis involving multiple sites with positive rheumatoid factor (HCC) - ICD9: 714.0, ICD10: M05.79 (primary diagnosis) Pt has not had tramadol for 2 weeks. Urine drug screen ordered today Pain management contract updated today PDMP reviewed with no concerns - TRAMADOL 50 MG TABLET 2. Drug-induced erectile dysfunction - ICD9: 607.84, E980.5, ICD10: N52.2 - SILDENAFIL (ANTIHYPERTENSIVE) 20 MG TABLET 3. Hypertriglyceridemia - ICD9: 272.1, ICD10: E78.1 4. Moderate cigarette smoker - ICD9: 305.1, ICD10: F17.210 - Cessation encouraged. - Physiologic and physical aspects of tobacco addiction as well as strategies for quitting were discussed. - Counseling was given focusing on the harmful effects of this addiction especially given the patient's medical condition(s) which will be worsened because of the chemicals in tobacco. 5. Chronic pain syndrome - ICD9: 338.4, ICD10: G89.4 Cullen Melendrez, Referring Provider: SELF [200] Allergies As of Date: 09/17/2017 (No Known Allergies) Date Reviewed: 09/17/2017 Reviewed by: Cullen Melendrez - Fully Assessed Reason for Visit: Follow Up [171] Hyperlipidemia [245] Reason For Visit History Recorded Primary Visit Diagnosis:Rheumatoid arthritis involving multiple sites with positive rheumatoid factor (HCC) [M05.79] Other Visit Diagnoses:Drug-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] Hypertriglyceridemia [E78.1] Moderate cigarette smoker [F17.210] Chronic pain syndrome [G89.4] Prescriptions as of 09/17/2017 Sig: X SILDENAFIL (ANTIHYPERTENSIVE)* Take 1 tablet by mouth as nee* PREDNISONE 10 MG TABLET Take 1 tablet by mouth once d* CYCLOBENZAPRINE 10 MG TABLET Take 1 tablet by mouth three * MELOXICAM 15 MG TABLET Take 1 tablet by mouth once d* ORENCIA CLICKJECT 125 MG/ML S* X TRAMADOL 50 MG TABLET Take 1 tablet by mouth every * Problem List As Of Date 09/17/2017 Noted Resolved Thrush [B37.0] INVALID FOR*02/13/2016 Acute laryngitis [J04.0] INVALID FOR*02/13/2016 Sore throat [J02.9] INVALID FOR*02/13/2016 Polyarticular juvenile rheumatoid arthritis, 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 Patient states usual achy today. Jesus Garcia CMA Prescriptions ordered this encounter Disp Refills Start End TRAMADOL 50 MG TABLET 120 * 0 09/17/2017 10/15/2017 Class: Print RX Route: ORAL Sig: Take 1 tablet by mouth every 6 hours as needed for up to 30 days. SILDENAFIL (ANTIHYPERTENSIVE) 20 MG * 60 t* 0 09/17/2017 10/15/2017 Route: ORAL Sig: Take 1 tablet by mouth as needed. Up to 3 tablets daily as needed Medications Discontinued During This Encounter traMADol (ULTRAM) 50 mg tablet 120 * 0 08/06/2017 09/17/2017 Class: Call Rx Route: ORAL Sig: Take 1 tablet by mouth every 6 hours as needed for up to 30 days. Disc: Reason for discontinue is not on file. sildenafil, antihypertensive, (REVAT* 60 t* 0 07/26/2017 09/17/2017 Route: ORAL Sig: Take 1 tablet by mouth as needed. Up to 3 tablets daily as needed Disc: Reason for discontinue is not on file. fenofibrate nanocrystallized (TRICOR* 30 t* 2 08/20/2017 09/17/2017 Route: ORAL Sig: Take 1 tablet by mouth once daily. Disc: Reason for discontinue is not on file. Level of Service: EST PATIENT VISIT LEVEL 4 [[id number]] Disposition: Return in about 3 months (around 12/18/2017). Follow-up and Disposition History Recorded Encounter Status:Closed by CULLEN MELENDREZ DO on 09/24/17 CBC W/DIFF, AUTOMATED Collected: 09/09/2017 Status: F Source: [place] 10:37 AM [facility] REPOSITORY TYPE CODE TESTS RESULT OUT OF RANGE REFERENCE UNITS LAB L100.1000 4.4-11.0 K/mm3 High WBC 12.0 LAB L100.1200 4.6-6.2 M/mm3 Normal RBC 5.23 LAB L100.1300 13.0-16.5 g/dl Normal HGB 15.1 LAB L100.1400 40-54 % Normal HCT 43.7 LAB L100.1500 80-94 fL Normal MCV 83.6 LAB L100.1600 27.0-32.0 pg Normal MCH 28.9 LAB L100.1700 32-36 g/gl Normal MCHC 34.6 LAB L100.1810 11.6-14.6 % Normal RDW CV 14.6 LAB L100.1820 35.1-43.9 fl High RDW SD 44.4 LAB L100.1900 150-450 K/mm3 Normal PLT 311 LAB L100.2000 6.2-12.0 fl Normal MPV 10.8 LAB L100.2100 47-70 % Normal NEUT% 61.1 LAB L100.2200 19-41 % Normal LY% 25.6 LAB L100.2300 0-10 % Normal MONO% 9.2 LAB L100.2400 0-5 % Normal EO% 3.4 LAB L100.2500 0-1 % Normal BASO% 0.5 LAB L100.2550 0.0-0.9 % Normal IM GRAN % 0.200 Result Comment: IG% - Immature Granulocytes (promyelocytes, myelocytes and metamyelocytes) > 1% indicates that a LEFT SHIFT is Present. LAB L100.2620 2.0-7.7 X10 3/uL Normal Absolute Neut 7.3 LAB L100.2720 0.83-4.51 X10 3/ul Normal Absolute Lymph 3.08 Performed By: #### L100.0100 #### [facility] [address] [place], [place], [address] COMPREHENSIVE METABOLIC Collected: 09/09/2017 Status: F Source: [facility] 10:37 AM [facility] REPOSITORY TYPE CODE TESTS RESULT OUT OF RANGE REFERENCE UNITS LAB L501.0100 74-106 mg/dL Normal GLU 101 Result Comment: Fasting Glucose result from 100 to 125 mg/dL suggests IMPAIRED HOMEOSTASIS per A.D.A. criteria. Please note revised GLUCOSE reference range effective 2017. LAB L501.1000 7-18 mg/dL Normal BUN 9 LAB L501.1100 0.70-1.30 mg/dL Normal CREAT,SERUM 0.87 Result Comment: The validity of the calculated GFR AND GFRAA in patients over 70 years has not been determined. Clinical correlation is essential. LAB L501.1110 >60 mL/min Normal EST GFR 100 Result Comment: Non- GFR Calc LAB L501.1115 >60 mL/min Normal EST GFR - AA 121 Result Comment: GFR Calc LAB L501.1300 10-20 RATIO Normal BUN/CRE 10.3 LAB L501.1500 6.4-8.2 g/dL T Normal PROT 6.9 LAB L501.1800 3.2-5.0 g/dL Normal ALB 3.4 LAB L501.1950 2.2-4.2 g/dL Normal GLOB 3.5 LAB L501.2000 0.9-2.4 RATIO Normal A/G 1.0 LAB L501.2200 8.5-10.1 mg/dL CA Normal 9.1 LAB L501.4100 15-37 U/L Normal AST 23 LAB L501.4305 45-117 U/L Normal ALK P 71 LAB L501.4405 16-61 U/L Normal ALT 32 LAB L501.4600 0.20-1.00 mg/dL T Normal BILI 0.80 LAB L501.5300 136-145 mmol/L NA Normal 144 LAB L501.5600 3.5-5.1 mmol/L K Normal 4.0 LAB L501.5900 98-107 mmol/L CL Normal 107 LAB L501.6100 21.0-32.0 mmol/L Normal CO2 27.0 LAB L501.6200 5-15 Normal GAP 10 Performed By: #### L500.4050 #### [facility] [address] [place], [address] OBSOLETE Observed: 09/08/2017 Status: COMPLETED Source: [place] 12:00 AM [facility] REPOSITORY Refill (TAMANNA) RANDALL RAMOS ([id number]) 1970 M Date Time Provider Department 09/08/17 CULLEN MELENDREZ During your visit today, we recorded the following information about you: Jesus JUICE Garcia 09/09/2017 11:58 AM Signed Last seen 11/13/16 to f/u in 3 months with no future appointment. Pharmacy electronically requests the following refill(s) Pending Prescriptions Disp Refills PREDNISONE 10 MG TABLET 30 tablet 0 Sig: Take 1 tablet by mouth once daily. MIKKI: No Jesus Garcia CMA Allergies As of Date: 09/08/2017 (No Known Allergies) Date Reviewed: 01/21/2017 Reviewed by: Mk Baker) KAITY Cordova - Fully Assessed Reason for Visit: Refill Request [94] Visit Diagnosis:Rheumatoid arthritis involving multiple sites with positive rheumatoid factor (HCC) [M05.79] Order(s):predniSONE (DELTASONE) 10 mg tabletTake 1 tablet by mouth once daily.Disp: 30 tabletRfl: 0 Prescriptions as of 09/08/2017 Sig: PREDNISONE 10 MG TABLET Take 1 tablet by mouth once d* FENOFIBRATE NANOCRYSTALLIZED * Take 1 tablet by mouth once d* SILDENAFIL (ANTIHYPERTENSIVE)* Take 1 tablet by mouth as nee* CYCLOBENZAPRINE 10 MG TABLET Take 1 tablet by mouth three * MELOXICAM 15 MG TABLET Take 1 tablet by mouth once d* ORENCIA CLICKJECT 125 MG/ML S* Problem List As Of Date 09/08/2017 Noted Resolved Thrush [B37.0] INVALID FOR*02/13/2016 Acute laryngitis [J04.0] INVALID FOR*02/13/2016 Sore throat [J02.9] INVALID FOR*02/13/2016 Polyarticular juvenile rheumatoid arthritis, 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 Medications Discontinued During This Encounter predniSONE (DELTASONE) 10 mg tablet 30 t* 0 08/06/2017 09/09/2017 Si OR 2 TABLET(S) DAILY NEEDED Disc: Reason for discontinue is not on file. Encounter Status:Closed by CULLEN MELENDREZ DO on 09/09/17 OBSOLETE Observed: 08/29/2017 Status: COMPLETED Source: [place] 12:00 AM [facility] REPOSITORY Refill (AGFAMPLE) RANDALL RAMOS ([id number]) 1970 M Date Time Provider Department 08/29/17 CULLEN MELENDREZ AGHARSH During your visit today, we recorded the following information about you: Luisito Mckeon CMA 08/29/2017 4:26 PM Signed patient phones requesting refills as follows: Last seen 11/13/16. Last refill 08/06/17. Patient states he is going on vacation next week and will run out while gone so he needs to get new script before he goes. Patient was supposed to follow up in 3 months and has not. Left message requesting patient call office back in regards to refill request. Pending Prescriptions Disp Refills TRAMADOL 50 MG TABLET 120 tablet 0 Sig: Take 1 tablet by mouth every 6 hours as needed for up to 30 days. NELI Class: C-IV MIKKI: No Please review and advise. JUICE Sterling DO 08/30/2017 10:40 AM Signed I cannot refill this narcotic medication without patient being seen. He can make 20 min appt to be seen by me before he leaves (if we have opening) or I can give him a weaning dose of tramadol thanks DO Jesus Hernandez CMA 08/30/2017 2:00 PM Signed Unable to contact patient with no vm set up. JUICE Leger CMA 08/30/2017 3:35 PM Signed Left message instructing patient to call office for either a possible appointment on Saturday or Saturday or call for a weaning dose of medication. Jesus Garcia CMA Allergies As of Date: 08/29/2017 (No Known Allergies) Date Reviewed: 01/21/2017 Reviewed by: Mk Baker) KAITY Cordova - Fully Assessed Reason for Visit: Refill Request [94] Visit Diagnosis:Rheumatoid arthritis involving multiple sites with positive rheumatoid factor (HCC) [M05.79] Prescriptions as of 08/29/2017 Sig: FENOFIBRATE NANOCRYSTALLIZED * Take 1 tablet by mouth once d* PREDNISONE 10 MG TABLET 1 OR 2 TABLET(S) DAILY NEE* TRAMADOL 50 MG TABLET Take 1 tablet by mouth every * SILDENAFIL (ANTIHYPERTENSIVE)* Take 1 tablet by mouth as nee* CYCLOBENZAPRINE 10 MG TABLET Take 1 tablet by mouth three * MELOXICAM 15 MG TABLET Take 1 tablet by mouth once d* ORENCIA CLICKJECT 125 MG/ML S* Problem List As Of Date 08/29/2017 Noted Resolved Thrush [B37.0] INVALID FOR*02/13/2016 Acute laryngitis [J04.0] INVALID FOR*02/13/2016 Sore throat [J02.9] INVALID FOR*02/13/2016 Polyarticular juvenile rheumatoid arthritis, 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-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] INVALID FOR* Rheumatoid arthritis of multiple sites without *INVALID FOR*02/13/2016 Rheumatoid arthritis involving multiple sites w*INVALID FOR* Thrush, oral [B37.0] INVALID FOR*11/13/2016 Chronic pain syndrome [G89.4] INVALID FOR* Moderate cigarette smoker [F17.210] INVALID FOR* Hypertriglyceridemia [E78.1] INVALID FOR* Encounter Status:Closed by JESUS GARCIA on 08/30/17 OBSOLETE Observed: 08/06/2017 Status: COMPLETED Source: [place] 12:00 AM [facility] REPOSITORY Refill (AGFAMPLE) RAMOS,ROGER D ([id number]) 1970 M Date Time Provider Department 08/06/17 CULLEN MELENDREZ During your visit today, we recorded the following information about you: Jesus Garcia CMA 08/06/2017 11:08 AM Signed Last filled 07/01/17. Patient phones requesting refills as follows: Pending Prescriptions Disp Refills PREDNISONE 10 MG TABLET 30 tablet 0 Si OR 2 TABLET(S) DAILY NEEDED MIKKI: No TRAMADOL 50 MG TABLET 120 tablet 0 Sig: Take 1 tablet by mouth every 6 hours as needed for up to 30 days. NELI Class: C-IV MIKKI: No Please review and advise. JUICE Leger DO 08/06/2017 11:33 AM Signed Please call in tramadol thanks DO Jesus Hernandez CMA 08/06/2017 4:16 PM Signed Called to [facility] (lor[facility]). Jesus Garcia CMA Allergies As of Date: 08/06/2017 (No Known Allergies) Date Reviewed: 01/21/2017 Reviewed by: Mk Baker) KAITY Cordova - Fully Assessed Reason for Visit: Refill Request [94] Visit Diagnosis:Rheumatoid arthritis involving multiple sites with positive rheumatoid factor (HCC) [M05.79] Order(s):predniSONE (DELTASONE) 10 mg tablet1 OR 2 TABLET(S) DAILY NEEDEDDisp: 30 tabletRfl: 0 traMADol (ULTRAM) 50 mg tabletTake 1 tablet by mouth every 6 hours as needed for up to 30 days.Disp: 120 tabletRfl: 0 Prescriptions as of 08/06/2017 Sig: PREDNISONE 10 MG TABLET 1 OR 2 TABLET(S) DAILY NEE* TRAMADOL 50 MG TABLET Take 1 tablet by mouth every * SILDENAFIL (ANTIHYPERTENSIVE)* Take 1 tablet by mouth as nee* X AMOXICILLIN 500 MG CAPSULE Take 1 capsule by mouth three* CYCLOBENZAPRINE 10 MG TABLET Take 1 tablet by mouth three * X FLUCONAZOLE 100 MG TABLET TAKE 1 TABLET BY MOUTH ONCE D* MELOXICAM 15 MG TABLET Take 1 tablet by mouth once d* ORENCIA CLICKJECT 125 MG/ML S* Problem List As Of Date 08/06/2017 Noted Resolved Thrush [B37.0] INVALID FOR*02/13/2016 Acute laryngitis [J04.0] INVALID FOR*02/13/2016 Sore throat [J02.9] INVALID FOR*02/13/2016 Polyarticular juvenile rheumatoid arthritis, 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-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] INVALID FOR* Rheumatoid arthritis of multiple sites without *INVALID FOR*02/13/2016 Rheumatoid arthritis involving multiple sites w*INVALID FOR* Thrush, oral [B37.0] INVALID FOR*11/13/2016 Chronic pain syndrome [G89.4] INVALID FOR* Moderate cigarette smoker [F17.210] INVALID FOR* Prescriptions ordered this encounter Disp Refills Start End PREDNISONE 10 MG TABLET 30 t* 0 08/06/2017 Si OR 2 TABLET(S) DAILY NEEDED TRAMADOL 50 MG TABLET 120 * 0 08/06/2017 09/05/2017 Class: Call Rx Route: ORAL Sig: Take 1 tablet by mouth every 6 hours as needed for up to 30 days. Medications Discontinued During This Encounter predniSONE (DELTASONE) 10 mg tablet 30 t* 0 06/28/2017 08/06/2017 Si OR 2 TABLET(S) DAILY NEEDED Disc: Reason for discontinue is not on file. traMADol (ULTRAM) 50 mg tablet 120 * 0 07/01/2017 08/06/2017 Class: Call Rx Route: ORAL Sig: Take 1 tablet by mouth every 6 hours as needed for up to 30 days. Disc: Reason for discontinue is not on file. Encounter Status:Closed by JESUS GARCIA on 08/06/17 HEMOGRAM Collected: 08/01/2017 Status: F Source: [facility] 9:[facility] AM [facility] TYPE CODE TESTS RESULT OUT OF REFERENCE UNITS RANGE LAB LWBC(LOINC) 4.8-10.8 thou/cmm High WBC 14.2 LAB LRBC(LOINC) 4.60-6.20 mil/cmm RBC 5.37 LAB LHGB(LOINC) 14.0-18.0 g/dL Hgb 15.3 LAB LHCT(LOINC) 42.0-52.0 % Hct 45.6 LAB LMCV(LOINC) 80.0-94.0 fl MCV 84.9 LAB LMCH(LOINC) 27.0-31.0 pg MCH 28.5 LAB LMCHC(LOINC 32.0-36.0 % ) MCHC 33.6 LAB LRDW(LOINC) 11.5-15.9 % RDW 14.5 LAB LPLT(LOINC) 150-400 thou/cmm Platelet 306 LAB LMPV(LOINC) 7.1-10.5 fl MPV 10.3 Performed By: #### LCBC #### [facility] [address] [address] LIPID PROFILE Collected: 08/01/2017 Status: F Source: [facility] 9:13 AM [facility] REPOSITORY TYPE CODE TESTS RESULT OUT OF REFERENCE UNITS RANGE LAB LCHOL(LOIN 0-199 mg/dL C) Cholesterol Blood 164 LAB LTRIG(LOIN 0-149 mg/dL C) Triglyceride High Blood 222 LAB LHDL2(LOIN >40 mg/dL C) HDL Cholesterol 40 LAB LLDL(LOINC 0-150 mg/dL ) LDL 80 LAB LCHHD(LOIN 2.1-7.3 C) CHOL/HDL 4.1 LAB LRISK(LOIN C) Risk Factor 4.1 Result Comment: Cardiac Risk Factor The CHD risk factor is based on the total Chol/HDL ratio. Other factors affect CHD risk such as hypertension, smoking, diabetes, severe obesity and premature CHD. Cardiac Risk Total Chol/HDL ratio Men Women 1/2 avg risk 3.4-4.9 3.3-6.3 Avg risk 5.0-9.5 6.4-7.0 2x avg risk 9.6-23.3 7.1-10.9 3x avg risk >23.4 >11.0 Performed By: #### LLIPD #### [facility] [address] [address] BASIC PANEL Collected: 08/01/2017 Status: F Source: [facility] 9:13 AM [facility] REPOSITORY TYPE CODE TESTS RESULT OUT OF REFERENCE UNITS RANGE LAB BORDERER(LOINC) 136-145 mEq/L Sodium Blood 141 LAB LK(LOINC) 3.5-5.1 mEq/L Potassium Blood 4.6 LAB LCL(LOINC) 98-107 mEq/L Chloride High Blood 108 LAB LCO2(LOINC 21-32 mEq/L ) CO2 Blood 30 LAB LGLU(LOINC 70-99 mg/dL ) Glucose High Blood 100 LAB LBUN(LOINC 7-25 mg/dL ) BUN Blood 14 LAB LCREA(LOIN 0.67-1.17 mg/dL C) Creatinine Blood 0.91 LAB LCA(LOINC) 8.5-10.1 mg/dL Calcium Blood 9.1 LAB LANGP(LOIN 8-20 C) Anion Gap 8 LAB LBNCR(LOIN 10-20 C) BUN/Creatinine 15 Ratio Performed By: #### LP8 #### [place] [address] MDRD EGFR Collected: 08/01/2017 Status: F Source: [facility] 9:13 AM [facility] REPOSITORY TYPE CODE TESTS RESULT OUT OF RANGE REFERENCE UNITS LAB LGFRF(LOINC >60mL/min/1.73m ) 2 eGFR >60 Result Comment: If the patient is , multiply the result by 1.210. Performed By: #### LGFR #### [place] [address] HEMOGLOBIN A1C Collected: 08/01/2017 Status: F Source: [facility] 9:13 AM [facility] REPOSITORY TYPE CODE TESTS RESULT OUT OF REFERENCE UNITS RANGE LAB LA1C2(LOINC 4.5-6.2 % ) Hgb A1c 5.1 LAB ESAV(LOINC) mg/dl Est. Avg. 100 Glucose Performed By: #### LA1C #### [place] [address] OBSOLETE Observed: 07/25/2017 Status: COMPLETED Source: [place] 12:00 AM [facility] REPOSITORY Refill (AGFAMPLE) RANDALL RAMOS ([id number]) 1970 M Date Time Provider Department 07/25/17 CULLEN MELENDREZ During your visit today, we recorded the following information about you: Joi Lee LPN 07/25/2017 9:59 AM Signed Pharmacy calls in requesting the following refill(s): Pending Prescriptions Disp Refills PREDNISONE 10 MG TABLET 30 tablet 0 Si OR 2 TABLET(S) DAILY NEEDED MIKKI: Yes Last OV 11/13/16, last RF 06/28/17. Due for labs, pended. Past labs have been from external source. Please advise. PINEDA Pack LPN 07/25/2017 10:05 AM Signed Patient phones requesting refills as follows: Pending Prescriptions Disp Refills PREDNISONE 10 MG TABLET 30 tablet 0 Si OR 2 TABLET(S) DAILY NEEDED MIKKI: Yes SILDENAFIL (ANTIHYPERTENSIVE) 20 MG TABLET 60 tablet 0 Sig: Take 1 tablet by mouth as needed. Up to 3 tablets daily as needed MIKKI: No TRAMADOL 50 MG TABLET 120 tablet 0 Sig: Take 1 tablet by mouth every 6 hours as needed for up to 30 days. NELI Class: C-IV MIKKI: No Last OV 11/13/16, last RF sildenafil 06/11/17, last RF tramadol 07/01/17. Please see other order, as well. Please review and advise. 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 Up to 3 tablets daily as neededDisp: 60 tabletRfl: 0 Prescriptions as of 07/25/2017 Sig: SILDENAFIL (ANTIHYPERTENSIVE)* Take 1 tablet by mouth as nee* TRAMADOL 50 MG TABLET Take 1 tablet by mouth every * PREDNISONE 10 MG TABLET 1 OR 2 TABLET(S) DAILY NEE* AMOXICILLIN 500 MG CAPSULE Take 1 capsule by mouth three* CYCLOBENZAPRINE 10 MG TABLET Take 1 tablet by mouth three * FLUCONAZOLE 100 MG TABLET TAKE 1 TABLET BY MOUTH ONCE D* MELOXICAM 15 MG TABLET Take 1 tablet by mouth once d* ORENCIA CLICKJECT 125 MG/ML S* Problem List As Of Date 07/25/2017 Noted Resolved Thrush [B37.0] INVALID FOR*02/13/2016 Acute laryngitis [J04.0] INVALID FOR*02/13/2016 Sore throat [J02.9] INVALID FOR*02/13/2016 Polyarticular juvenile rheumatoid arthritis, 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 Up to 3 tablets daily as needed Medications Discontinued During This Encounter sildenafil, antihypertensive, (REVAT* 60 t* 0 06/11/2017 07/26/2017 Route: ORAL Sig: Take 1 tablet by mouth as needed. Up to 3 tablets daily as needed Disc: Reason for discontinue is not on file. Encounter Status:Closed by JOI LEE LPN on 07/26/17 OBSOLETE Observed: 07/01/2017 Status: COMPLETED Source: [place] 12:00 AM [facility] REPOSITORY Refill (AGFAMPLE) RANDALL RAMOS ([id number]) 1970 M Date Time Provider Department 07/01/17 CULLEN MELENDREZ During your visit today, we recorded the following information about you: Karl Jennings CMA 07/01/2017 3:13 PM Signed Last OV 11/2016. Last rx 06/03/17 Patient phones requesting refills as follows: Pending Prescriptions Disp Refills TRAMADOL 50 MG TABLET 120 tablet 0 Sig: Take 1 tablet by mouth every 6 hours as needed for up to 30 days. NELI Class: C-IV MIKKI: No Please review and advise. JUICE Washington DO 07/01/2017 3:44 PM Signed Please call in DO Jesus Cerna CMA 07/01/2017 4:05 PM Signed Called to [facility] (). Jesus Garcia CMA Allergies As of Date: 07/01/2017 (No Known Allergies) Date Reviewed: 01/21/2017 Reviewed by: Mk Baker) KAITY Cordova - Fully Assessed Reason for Visit: Refill Request [94] Visit Diagnosis:Rheumatoid arthritis involving multiple sites with positive rheumatoid factor (HCC) [M05.79] Order(s):traMADol (ULTRAM) 50 mg tabletTake 1 tablet by mouth every 6 hours as needed for up to 30 days.Disp: 120 tabletRfl: 0 Prescriptions as of 07/01/2017 Sig: TRAMADOL 50 MG TABLET Take 1 tablet by mouth every * PREDNISONE 10 MG TABLET 1 OR 2 TABLET(S) DAILY NEE* SILDENAFIL (ANTIHYPERTENSIVE)* Take 1 tablet by mouth as nee* AMOXICILLIN 500 MG CAPSULE Take 1 capsule by mouth three* CYCLOBENZAPRINE 10 MG TABLET Take 1 tablet by mouth three * FLUCONAZOLE 100 MG TABLET TAKE 1 TABLET BY MOUTH ONCE D* MELOXICAM 15 MG TABLET Take 1 tablet by mouth once d* ORENCIA CLICKJECT 125 MG/ML S* Problem List As Of Date 07/01/2017 Noted Resolved Thrush [B37.0] INVALID FOR*02/13/2016 Acute laryngitis [J04.0] INVALID FOR*02/13/2016 Sore throat [J02.9] INVALID FOR*02/13/2016 Polyarticular juvenile rheumatoid arthritis, 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 Medications Discontinued During This Encounter traMADol (ULTRAM) 50 mg tablet 120 * 0 06/03/2017 07/01/2017 Class: Call Rx Route: ORAL Sig: Take 1 tablet by mouth every 6 hours as needed for up to 30 days. Disc: Reason for discontinue is not on file. Encounter Status:Closed by JESUS GARCIA on 07/01/17 OBSOLETE Observed: 06/28/2017 Status: COMPLETED Source: [place] 12:00 AM [facility] REPOSITORY Refill (AGFAMPLE) RANDALL RAMOS ([id number]) 1970 M Date Time Provider Department 06/28/17 CULLEN MELENDREZ During your visit today, we recorded the following information about you: Joi Lee LPN 06/28/2017 11:27 AM Signed Pharmacy calls in requesting the following refill(s): Pending Prescriptions Disp Refills PREDNISONE 10 MG TABLET 30 tablet 0 Si OR 2 TABLET(S) DAILY NEEDED MIKKI: Yes Last OV 11/13/16, last RF 05/07/17. Please advise. Thank you. Joi Lee LPN Allergies As of Date: 06/28/2017 (No Known Allergies) Date Reviewed: 01/21/2017 Reviewed by: Mk (Rn) KAITY Cordova - Fully Assessed Reason for Visit: Refill Request [94] Order(s):predniSONE (DELTASONE) 10 mg tablet1 OR 2 TABLET(S) DAILY NEEDEDDisp: 30 tabletRfl: 0 Prescriptions as of 06/28/2017 Sig: PREDNISONE 10 MG TABLET 1 OR 2 TABLET(S) DAILY NEE* SILDENAFIL (ANTIHYPERTENSIVE)* Take 1 tablet by mouth as nee* TRAMADOL 50 MG TABLET Take 1 tablet by mouth every * AMOXICILLIN 500 MG CAPSULE Take 1 capsule by mouth three* CYCLOBENZAPRINE 10 MG TABLET Take 1 tablet by mouth three * FLUCONAZOLE 100 MG TABLET TAKE 1 TABLET BY MOUTH ONCE D* MELOXICAM 15 MG TABLET Take 1 tablet by mouth once d* ORENCIA CLICKJECT 125 MG/ML S* Problem List As Of Date 06/28/2017 Noted Resolved Thrush [B37.0] INVALID FOR*02/13/2016 Acute laryngitis [J04.0] INVALID FOR*02/13/2016 Sore throat [J02.9] INVALID FOR*02/13/2016 Polyarticular juvenile rheumatoid arthritis, 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-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] INVALID FOR* Rheumatoid arthritis of multiple sites without *INVALID FOR*02/13/2016 Rheumatoid arthritis involving multiple sites w*INVALID FOR* Thrush, oral [B37.0] INVALID FOR*11/13/2016 Chronic pain syndrome [G89.4] INVALID FOR* Moderate cigarette smoker [F17.210] INVALID FOR* Prescriptions ordered this encounter Disp Refills Start End PREDNISONE 10 MG TABLET 30 t* 0 06/28/2017 Si OR 2 TABLET(S) DAILY NEEDED Medications Discontinued During This Encounter predniSONE (DELTASONE) 10 mg tablet 30 t* 0 05/07/2017 06/28/2017 Si OR 2 TABLET(S) DAILY NEEDED Disc: Reason for discontinue is not on file. Encounter Status:Closed by CULLEN MELENDREZ DO on 06/28/17 OBSOLETE Observed: 06/11/2017 Status: COMPLETED Source: [place] 12:00 AM [facility] REPOSITORY Refill (AGFAMPLE) RANDALL RAMOS ([id number]) 1970 M Date Time Provider Department 06/11/17 CULLEN MELENDREZ During your visit today, we recorded the following information about you: Karl Jennings CMA 06/11/2017 2:52 PM Signed Last OV 11/13/16 Patient phones requesting refills as follows: Pending Prescriptions Disp Refills SILDENAFIL (ANTIHYPERTENSIVE) 20 MG TABLET 60 tablet 0 Sig: Take 1 tablet by mouth as needed. MIKKI: No Please review and advise. Karl Jennings CMA Allergies As of Date: 06/11/2017 (No Known Allergies) Date Reviewed: 01/21/2017 Reviewed by: Mk Baker) KAITY Cordova - Fully Assessed Reason for Visit: Refill Request [94] Order(s):sildenafil, antihypertensive, (REVATIO) 20 mg tabletTake 1 tablet by mouth as needed. Up to 3 tablets daily as neededDisp: 60 tabletRfl: 0 Prescriptions as of 06/11/2017 Sig: SILDENAFIL (ANTIHYPERTENSIVE)* Take 1 tablet by mouth as nee* TRAMADOL 50 MG TABLET Take 1 tablet by mouth every * PREDNISONE 10 MG TABLET 1 OR 2 TABLET(S) DAILY NEE* AMOXICILLIN 500 MG CAPSULE Take 1 capsule by mouth three* CYCLOBENZAPRINE 10 MG TABLET Take 1 tablet by mouth three * FLUCONAZOLE 100 MG TABLET TAKE 1 TABLET BY MOUTH ONCE D* MELOXICAM 15 MG TABLET Take 1 tablet by mouth once d* ORENCIA CLICKJECT 125 MG/ML S* Problem List As Of Date 06/11/2017 Noted Resolved Thrush [B37.0] INVALID FOR*02/13/2016 Acute laryngitis [J04.0] INVALID FOR*02/13/2016 Sore throat [J02.9] INVALID FOR*02/13/2016 Polyarticular juvenile rheumatoid arthritis, 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 Up to 3 tablets daily as needed Medications Discontinued During This Encounter sildenafil, antihypertensive, (REVAT* 60 t* 0 05/07/2017 06/11/2017 Sig: TAKE 1 TABLET BY MOUTH NEEDED. Disc: Reason for discontinue is not on file. Encounter Status:Closed by CULLEN MELENDREZ DO on 06/11/17 OBSOLETE Observed: 06/03/2017 Status: COMPLETED Source: [place] 12:00 AM [facility] REPOSITORY Refill (AGFAMPLE) RANDALL RAMOS ([id number]) 1970 M Date Time Provider Department 06/03/17 CULLEN MELENDREZ During your visit today, we recorded the following information about you: Karl Jennings CMA 06/03/2017 1:55 PM Signed Pt last OV 11/2016. Last rx 04/29/17 Patient phones requesting refills as follows: Pending Prescriptions Disp Refills TRAMADOL 50 MG TABLET 120 tablet 0 Sig: Take 1 tablet by mouth every 6 hours as needed for up to 30 days. NELI Class: C-IV MIKKI: No Please review and advise. Karl Jennings CMA Cullenshalini Melendrez 06/03/2017 4:53 PM Signed Please call in tramadol thanks Cullenshalini MelendrezDO Jesus JUICE Garcia 06/03/2017 5:21 PM Signed Called to TONY (lorraine). Dianaadonis Garcia CMA Allergies As of Date: 06/03/2017 (No Known Allergies) Date Reviewed: 01/21/2017 Reviewed by: Mk (Rn) KAITY Cordova - Fully Assessed Reason for Visit: Refill Request [94] Visit Diagnosis:Rheumatoid arthritis involving multiple sites with positive rheumatoid factor (HCC) [M05.79] Order(s):traMADol (ULTRAM) 50 mg tabletTake 1 tablet by mouth every 6 hours as needed for up to 30 days.Disp: 120 tabletRfl: 0 Prescriptions as of 06/03/2017 Sig: TRAMADOL 50 MG TABLET Take 1 tablet by mouth every * PREDNISONE 10 MG TABLET 1 OR 2 TABLET(S) DAILY NEE* SILDENAFIL (ANTIHYPERTENSIVE)* TAKE 1 TABLET BY MOUTH NEE* AMOXICILLIN 500 MG CAPSULE Take 1 capsule by mouth three* CYCLOBENZAPRINE 10 MG TABLET Take 1 tablet by mouth three * FLUCONAZOLE 100 MG TABLET TAKE 1 TABLET BY MOUTH ONCE D* MELOXICAM 15 MG TABLET Take 1 tablet by mouth once d* ORENCIA CLICKJECT 125 MG/ML S* Problem List As Of Date 06/03/2017 Noted Resolved Thrush [B37.0] INVALID FOR*02/13/2016 Acute laryngitis [J04.0] INVALID FOR*02/13/2016 Sore throat [J02.9] INVALID FOR*02/13/2016 Polyarticular juvenile rheumatoid arthritis, 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 Medications Discontinued During This Encounter traMADol (ULTRAM) 50 mg tablet 120 * 0 04/30/2017 06/03/2017 Class: Call Rx Route: ORAL Sig: Take 1 tablet by mouth every 6 hours as needed for up to 30 days. Disc: Reason for discontinue is not on file. Encounter Status:Closed by JESUS GARCIA on 06/03/17 OBSOLETE Observed: 05/06/2017 Status: COMPLETED Source: [place] 12:00 AM [facility] REPOSITORY Refill (AGFAMPLE) RANDALL RAMOS ([id number]) 1970 M Date Time Provider Department 05/06/17 CULLEN MELENDREZ During your visit today, we recorded the following information about you: Karl Jennings CMA 05/07/2017 8:24 AM Signed Last OV 11/13/16 Pharmacy electronically requests the following refill(s) Pending Prescriptions Disp Refills PREDNISONE 10 MG TABLET 30 tablet 0 Si OR 2 TABLET(S) DAILY NEEDED MIKKI: Yes SILDENAFIL (ANTIHYPERTENSIVE) 20 MG TABLET 60 tablet 0 Sig: TAKE 1 TABLET BY MOUTH NEEDED. MIKKI: Yes Karl Jennings CMA Allergies As of Date: 05/06/2017 (No Known Allergies) Date Reviewed: 01/21/2017 Reviewed by: Mk Baker) KAITY Cordova - Fully Assessed Reason for Visit: Refill Request [94] Order(s):predniSONE (DELTASONE) 10 mg tablet1 OR 2 TABLET(S) DAILY NEEDEDDisp: 30 tabletRfl: 0 sildenafil, antihypertensive, (REVATIO) 20 mg tabletTAKE 1 TABLET BY MOUTH NEEDED.Disp: 60 tabletRfl: 0 Prescriptions as of 05/06/2017 Sig: PREDNISONE 10 MG TABLET 1 OR 2 TABLET(S) DAILY NEE* SILDENAFIL (ANTIHYPERTENSIVE)* TAKE 1 TABLET BY MOUTH NEE* TRAMADOL 50 MG TABLET Take 1 tablet by mouth every * AMOXICILLIN 500 MG CAPSULE Take 1 capsule by mouth three* CYCLOBENZAPRINE 10 MG TABLET Take 1 tablet by mouth three * FLUCONAZOLE 100 MG TABLET TAKE 1 TABLET BY MOUTH ONCE D* MELOXICAM 15 MG TABLET Take 1 tablet by mouth once d* ORENCIA CLICKJECT 125 MG/ML S* Problem List As Of Date 05/06/2017 Noted Resolved Thrush [B37.0] INVALID FOR*02/13/2016 Acute laryngitis [J04.0] INVALID FOR*02/13/2016 Sore throat [J02.9] INVALID FOR*02/13/2016 Polyarticular juvenile rheumatoid arthritis, 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 Medications Discontinued During This Encounter predniSONE (DELTASONE) 10 mg tablet 30 t* 0 03/11/2017 05/07/2017 Si OR 2 TABLET(S) DAILY NEEDED Disc: Reason for discontinue is not on file. sildenafil, antihypertensive, (REVAT* 60 t* 0 03/22/2017 05/07/2017 Route: ORAL Sig: Take 1 tablet by mouth as needed. Disc: Reason for discontinue is not on file. Encounter Status:Closed by CULLEN MELENDREZ DO on 05/07/17 OBSOLETE Observed: 04/30/2017 Status: COMPLETED Source: [place] 12:00 AM [facility] REPOSITORY Refill (AGFAMPLE) RAMOS,ROGER D ([id number]) 1970 M Date Time Provider Department 04/30/17 CULLEN MELENDREZ During your visit today, we recorded the following information about you: Luisito Mckeon CMA 04/30/2017 3:49 PM Signed Patient phones requesting refills as follows: Last seen 11/13/16 . Last refill 04/08/17 . Pending Prescriptions Disp Refills TRAMADOL 50 MG TABLET 120 tablet 0 Sig: Take 1 tablet by mouth every 6 hours as needed for up to 30 days. NELI Class: C-IV MIKKI: No Please review and advise. JUICE Sterling DO 04/30/2017 4:04 PM Signed Please call in tramadol DO Luisito Hernandez CMA 04/30/2017 5:03 PM Signed Tramadol script called to [facility], left message with do not fill before 05/05/17. Luisito Mckeon CMA Allergies As of Date: 04/30/2017 (No Known Allergies) Date Reviewed: 01/21/2017 Reviewed by: Mk WittRn) KAITY Cordova - Fully Assessed Reason for Visit: Refill Request [94] Visit Diagnosis:Rheumatoid arthritis involving multiple sites with positive rheumatoid factor (HCC) [M05.79] Order(s):traMADol (ULTRAM) 50 mg tabletTake 1 tablet by mouth every 6 hours as needed for up to 30 days.Disp: 120 tabletRfl: 0 Prescriptions as of 04/30/2017 Sig: TRAMADOL 50 MG TABLET Take 1 tablet by mouth every * SILDENAFIL (ANTIHYPERTENSIVE)* Take 1 tablet by mouth as nee* PREDNISONE 10 MG TABLET 1 OR 2 TABLET(S) DAILY NEE* AMOXICILLIN 500 MG CAPSULE Take 1 capsule by mouth three* CYCLOBENZAPRINE 10 MG TABLET Take 1 tablet by mouth three * FLUCONAZOLE 100 MG TABLET TAKE 1 TABLET BY MOUTH ONCE D* MELOXICAM 15 MG TABLET Take 1 tablet by mouth once d* ORENCIA CLICKJECT 125 MG/ML S* Problem List As Of Date 04/30/2017 Noted Resolved Thrush [B37.0] INVALID FOR*02/13/2016 Acute laryngitis [J04.0] INVALID FOR*02/13/2016 Sore throat [J02.9] INVALID FOR*02/13/2016 Polyarticular juvenile rheumatoid arthritis, 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 Medications Discontinued During This Encounter traMADol (ULTRAM) 50 mg tablet 120 * 0 04/08/2017 04/30/2017 Class: Call Rx Route: ORAL Sig: Take 1 tablet by mouth every 6 hours as needed for up to 30 days. Disc: Reason for discontinue is not on file. Encounter Status:Closed by LUISITO MCKEON on 04/30/17 OBSOLETE Observed: 04/08/2017 Status: COMPLETED Source: [place] 12:00 AM [facility] REPOSITORY Refill (AGFAMPLE) RANDALL RAMOS ([id number]) 1970 M Date Time Provider Department 04/08/17 CULLEN MELENDREZ During your visit today, we recorded the following information about you: Jesus Garcia CMA 04/08/2017 7:56 AM Signed Last seen 11/13/16. Last sill 1/26/18. Pharmacy electronically requests the following refill(s) Pending Prescriptions Disp Refills TRAMADOL 50 MG TABLET 120 tablet 0 Sig: Take 1 tablet by mouth every 6 hours as needed for up to 30 days. NELI Class: C-IV MIKKI: Jessica Garcia CMA Cullen Melendrez DO 04/08/2017 2:11 PM Signed Please call in DO Karl Cerna CMA 04/08/2017 2:52 PM Signed Called to JUDI Jennings CMA Allergies As of Date: 04/08/2017 (No Known Allergies) Date Reviewed: 01/21/2017 Reviewed by: Mk (Rn) KAITY Cordova - Fully Assessed Reason for Visit: Refill Request [94] Visit Diagnosis:Rheumatoid arthritis involving multiple sites with positive rheumatoid factor (HCC) [M05.79] Order(s):traMADol (ULTRAM) 50 mg tabletTake 1 tablet by mouth every 6 hours as needed for up to 30 days.Disp: 120 tabletRfl: 0 Prescriptions as of 04/08/2017 Sig: TRAMADOL 50 MG TABLET Take 1 tablet by mouth every * SILDENAFIL (ANTIHYPERTENSIVE)* Take 1 tablet by mouth as nee* PREDNISONE 10 MG TABLET 1 OR 2 TABLET(S) DAILY NEE* AMOXICILLIN 500 MG CAPSULE Take 1 capsule by mouth three* CYCLOBENZAPRINE 10 MG TABLET Take 1 tablet by mouth three * FLUCONAZOLE 100 MG TABLET TAKE 1 TABLET BY MOUTH ONCE D* MELOXICAM 15 MG TABLET Take 1 tablet by mouth once d* ORENCIA CLICKJECT 125 MG/ML S* Problem List As Of Date 04/08/2017 Noted Resolved Thrush [B37.0] INVALID FOR*02/13/2016 Acute laryngitis [J04.0] INVALID FOR*02/13/2016 Sore throat [J02.9] INVALID FOR*02/13/2016 Polyarticular juvenile rheumatoid arthritis, 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 Medications Discontinued During This Encounter traMADol (ULTRAM) 50 mg tablet 120 * 0 03/08/2017 04/08/2017 Class: Call Rx Route: ORAL Sig: Take 1 tablet by mouth every 6 hours as needed for up to 30 days. Disc: Reason for discontinue is not on file. Encounter Status:Closed by KARL BUITRAGO on 04/08/17 COMPREHENSIVE METABOLIC Collected: 03/25/2017 Status: F Source: [place] 3:21 PM [facility] REPOSITORY TYPE CODE TESTS RESULT OUT OF RANGE REFERENCE UNITS LAB L501.0100 74-106 mg/dL Normal GLU 106 Result Comment: Fasting Glucose result from 100 to 125 mg/dL suggests IMPAIRED HOMEOSTASIS per A.D.A. criteria. Please note revised GLUCOSE reference range effective 2017. LAB L501.1000 7-18 mg/dL Normal BUN 13 LAB L501.1100 0.70-1.30 mg/dL Normal CREAT,SERUM 0.94 Result Comment: The validity of the calculated GFR AND GFRAA in patients over 70 years has not been determined. Clinical correlation is essential. LAB L501.1110 >60 mL/min Normal EST GFR 92 Result Comment: Non- GFR Calc LAB L501.1115 >60 mL/min Normal EST GFR - AA 112 Result Comment: GFR Calc LAB L501.1300 10-20 RATIO Normal BUN/CRE 13.8 LAB L501.1500 6.4-8.2 g/dL T Normal PROT 7.4 LAB L501.1800 3.2-5.0 g/dL Normal ALB 3.5 LAB L501.1950 2.2-4.2 g/dL Normal GLOB 3.9 LAB L501.2000 0.9-2.4 RATIO Normal A/G 0.9 LAB L501.2200 8.5-10.1 mg/dL CA Normal 9.0 LAB L501.4100 15-37 U/L Normal AST 24 LAB L501.4305 45-117 U/L Normal ALK P 73 LAB L501.4405 16-61 U/L Normal ALT 38 Result Comment: Please note revised ALT reference range effective 2017. LAB L501.4600 0.20-1.00 mg/dL Normal T BILI 1.00 LAB L501.5300 136-145 mmol/L Normal NA 139 LAB L501.5600 3.5-5.1 mmol/L Normal K 3.7 LAB L501.5900 98-107 mmol/L Normal CL 104 LAB L501.6100 21.0-32.0 mmol/L Normal CO2 25.0 LAB L501.6200 5-15 Normal GAP 10 Performed By: #### L500.4050 #### [facility] [address] [place], [address] CBC W/DIFF, AUTOMATED Collected: 03/25/2017 Status: F Source: [place] 3:21 PM [facility] REPOSITORY TYPE CODE TESTS RESULT OUT OF RANGE REFERENCE UNITS LAB L100.1000 4.4-11.0 K/mm3 High WBC 11.4 LAB L100.1200 4.6-6.2 M/mm3 Normal RBC 5.52 LAB L100.1300 13.0-16.5 g/dl Normal HGB 15.7 LAB L100.1400 40-54 % Normal HCT 45.9 LAB L100.1500 80-94 fL Normal MCV 83.2 LAB L100.1600 27.0-32.0 pg Normal MCH 28.4 LAB L100.1700 32-36 g/gl Normal MCHC 34.2 LAB L100.1810 11.6-14.6 % Normal RDW CV 14.4 LAB L100.1820 35.1-43.9 fl Normal RDW SD 43.7 LAB L100.1900 150-450 K/mm3 Normal PLT 315 LAB L100.2000 6.2-12.0 fl Normal MPV 10.7 LAB L100.2100 47-70 % Normal NEUT% 51.8 LAB L100.2200 19-41 % Normal LY% 35.6 LAB L100.2300 0-10 % Normal MONO% 8.5 LAB L100.2400 0-5 % Normal EO% 3.2 LAB L100.2500 0-1 % Normal BASO% 0.7 LAB L100.2550 0.0-0.9 % Normal IM GRAN % 0.200 Result Comment: IG% - Immature Granulocytes (promyelocytes, myelocytes and metamyelocytes) > 1% indicates that a LEFT SHIFT is Present. LAB L100.2620 2.0-7.7 X10 3/uL Normal Absolute Neut 5.9 LAB L100.2720 0.83-4.51 X10 3/ul Normal Absolute Lymph 4.06 Performed By: #### L100.0100 #### [facility] [place] [address], [address] OBSOLETE Observed: 03/22/2017 Status: COMPLETED Source: [place] 12:00 AM [facility] REPOSITORY Refill (AGFAMPLE) RANDALL RAMOS ([id number]) 1970 M Date Time Provider Department 03/22/17 CULLEN MELENDREZ During your visit today, we recorded the following information about you: Jesus Garcia CMA 03/22/2017 8:55 AM Signed Last seen 11/13/16. Patient phones requesting refills as follows: Pending Prescriptions Disp Refills SILDENAFIL (ANTIHYPERTENSIVE) 20 MG TABLET 60 tablet 0 Sig: Take 1 tablet by mouth as needed. MIKKI: No Please review and advise. Jesus Garcia CMA Allergies As of Date: 03/22/2017 (No Known Allergies) Date Reviewed: 01/21/2017 Reviewed by: Mk (Rn) KAITY Cordova - Fully Assessed Reason for Visit: Refill Request [94] Visit Diagnosis:Drug-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] Order(s):sildenafil, antihypertensive, (REVATIO) 20 mg tabletTake 1 tablet by mouth as needed.Disp: 60 tabletRfl: 0 Prescriptions as of 03/22/2017 Sig: SILDENAFIL (ANTIHYPERTENSIVE)* Take 1 tablet by mouth as nee* PREDNISONE 10 MG TABLET 1 OR 2 TABLET(S) DAILY NEE* TRAMADOL 50 MG TABLET Take 1 tablet by mouth every * AMOXICILLIN 500 MG CAPSULE Take 1 capsule by mouth three* CYCLOBENZAPRINE 10 MG TABLET Take 1 tablet by mouth three * FLUCONAZOLE 100 MG TABLET TAKE 1 TABLET BY MOUTH ONCE D* MELOXICAM 15 MG TABLET Take 1 tablet by mouth once d* ORENCIA CLICKJECT 125 MG/ML S* Problem List As Of Date 03/22/2017 Noted Resolved Thrush [B37.0] INVALID FOR*02/13/2016 Acute laryngitis [J04.0] INVALID FOR*02/13/2016 Sore throat [J02.9] INVALID FOR*02/13/2016 Polyarticular juvenile rheumatoid arthritis, 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 Medications Discontinued During This Encounter sildenafil, antihypertensive, (REVAT* 60 t* 0 02/18/2017 03/22/2017 Route: ORAL Sig: Take 1 tablet by mouth as needed. Disc: Reason for discontinue is not on file. Encounter Status:Closed by CULLEN MELENDREZ DO on 03/22/17 ALLERGIES ALLERGIES DATE TYPE / CODE NAME / CODE REACTION SEVERITY SOURCE Drug NO KNOWN [facility] Class/30876 ALLERGIES Other [place] 1003(SNOMED Repository CT) ENCOUNTERS ENCOUNTERS ADMIT/DISCHARGE ACCOUNT ADMITTING ENCOUNTER LOCATION SOURCE NUMBER CLASS 03/04/2018/03/04/19 [id number] Ambulatory [address] Other [place] Repository 03/04/2018 [id number] [facility] ing:MTLAB Repository 12/02/2017 [id number] [facility] ing:MTLAB Repository 09/09/2017 [id number] [facility] ing:MTLAB Repository 03/25/2017 [id number] Ambulatory [place] [facility] ing:MTLAB Repository PAYERS PAYERS ENCOUNTER GUARANTOR PAYER SUBSCRIBER SOURCE 03/04/2018 RANDALL D Primary RANDALL Bib Velazco [id number] Insurance:ANTHEMPolic [place]SONDOB[facility] [address] [place]: [id number] [id number] Repository 62100Yhz: ([phone]) Date:[phone] () [id number], [place] [address]TU: 03/04/2018 Secondary NOT GIVENUNK [place] Insurance:SELF PAY [facility] Number: Effective Repository Date:2018-03-04 12/02/2017 RANDALL D Primary RANDALL D [place] [id number] Insurance:ANTHEMPolic WILLIAMSONDOB: [facility] Number: [id number], [place] [id number] Repository [address]Gey: ([phone]) Date:4643-55-26XW [phone] () 733[address]E[place]IRAN, [place] [address]OJ: 12/02/2017 Secondary NOT GIVENUNK [place] Insurance:SELF PAY [facility] Number: Effective Repository Date:2017-12-02 09/09/2017 RANDALL D Primary RANDALL Bib Velazco [id number] Insurance:ANTHEMPolic WILLIAMSONDOB: [facility] [place] [address] [place] Number: [id number], [place] [id number] Repository [address]Wxd: ([phone]) Date:7314-21-58GY [phone] () 189[address]XYBEMIG, [place] [address]EV: 09/09/2017 Secondary NOT GIVENUNK [place] Insurance:SELF PAY [facility] Number: Effective Repository Date:2017-09-09 03/25/2017 Randall Primary Randall Velazco [id number] Insurance:ANTHEMPolic WilliamsonDOB: [facility] Number: [id number], [place] [id number] Repository [address]Kpn: ([phone]) Date:8669-49-07WA [phone] () 434266IOLUNCB, [place] [address]DL: 03/25/2017 Secondary NOT GIVENUNK [place] Insurance:SELF PAY [facility]: Effective Repository Date:2017-03-25
== END ==
PROVIDERS: Family Provider Family Medicine; PCP Family Medicine; Referring Provider Internal Medicine Rheumatology; Visit Provider Internal Medicine Rheumatology
DX: M06.09 Rheumatoid arthritis without rheumatoid factor, multiple sites (principal); Z79.899 Other long term (current) drug therapy; Q66.7 Congenital pes cavus; M47.897 Other spondylosis, lumbosacral region
CPT/HCPCS: 36415; 80053; 85025

== ENCOUNTER → 2018-06-06 | Outpatient (CLI) | payer BC, SELFPAY ==
[2018-06-06 12:21] LABS: Absolute Neutrophil Count 9.6 X10^3/uL (2.0-7.7); Basophil# 0.06 X10^3/uL; Basophil% 0.4 % (0-1); Eosinophil# 0.35 X10^3/uL; Eosinophils% 2.4 % (0-5); Hematocrit 43.7 % (40-54); Hemoglobin 14.9 g/dl (13.0-16.5); Mean Corp Hgb Conc 34.1 g/gl (32-36); Mean Corpuscular Hgb 28.4 pg (27.0-32.0); Mean Corpuscular Volume 83.2 fL (80-94); Monocyte# 1.05 X10^3/uL; Monocyte% 7.3 % (0-10); Neutrophil # 9.57 X10^3/uL (2.7-7.7); Neutrophil % 66.8 % (47-70); Platelet Count 322 K/mm3 (150-450); RBC Distribution Width CV 13.9 % (11.6-14.6); RBC Distribution Width SD 42.4 fl (35.1-43.9); Red Blood Count 5.25 M/mm3 (4.6-6.2); White Blood Count 14.4 K/mm3 (4.4-11.0)
[2018-06-06 12:27] LABS: POSITIVE COUNT NO; POSITIVE DIFFERENTIAL NO; POSITIVE MORPHOLOGY NO
[2018-06-06 12:45] LABS: ALB/GLOB Ratio 1.1 RATIO (0.9-2.4); AST(SGOT) 18 U/L (15-37); Alanine Aminotransfer ALT/SGPT 29 U/L (16-61); Albumin, Serum 3.4 g/dL (3.2-5.0); Alkaline Phosphatase 76 U/L (45-117); Anion Gap 4 (5-15); BUN 9 mg/dL (7-18); BUN/Creat Ratio 9.7 RATIO (10-20); Calcium,Total 8.8 mg/dL (8.5-10.1); Chloride 107 mmol/L (98-107); Creatinine, Serum 0.93 mg/dL (0.70-1.30); EST Glomerular Filtration Rate 93 mL/min (>60); Est Glom Filt Rate - Afr Amer 112 mL/min (>60); Globulin 3.2 g/dL (2.2-4.2); Glucose 59 mg/dL (74-106); Potassium 3.4 mmol/L (3.5-5.1); Protein, Total 6.6 g/dL (6.4-8.2); Sodium Level 143 mmol/L (136-145)
== END | disposition home or self-care (01) ==
LOC: MTLAB 11:18
PROVIDERS: Family Provider Family Medicine; PCP Family Medicine; Referring Provider Internal Medicine Rheumatology; Visit Provider Internal Medicine Rheumatology
DX: M06.09 Rheumatoid arthritis without rheumatoid factor, multiple sites (principal); Z79.899 Other long term (current) drug therapy; Q66.7 Congenital pes cavus; M47.897 Other spondylosis, lumbosacral region
CPT/HCPCS: 36415; 80053; 85025

== ENCOUNTER → 2018-12-18 15:38 | Outpatient (CLI) | payer BC, SELFPAY ==
[2018-12-18 18:00] LABS: Absolute Lymphocyte Count 5.41 X10^3/uL (0.83-4.51); Absolute Neutrophil Count 4.9 X10^3/uL (2.0-7.7); Basophil# 0.11 X10^3/uL; Basophil% 0.9 % (0-1); Eosinophil# 0.49 X10^3/uL; Hemoglobin 14.6 g/dL (13.0-16.5); Lymphocyte # 5.41 X10^3/ul (4.0); Lymphocyte % 44.2 % (19-41); Mean Corpuscular Hgb 28.6 pg (27.0-32.0); Mean Corpuscular Volume 84.1 fL (80-94); Mean Platelet Vol. 10.2 fl (6.2-12.0); Monocyte# 1.33 X10^3/uL; Monocyte% 10.9 % (0-10); NRBC Flagged by Analyzer 0 % (0-5); Neutrophil # 4.88 X10^3/uL (2.7-7.7); Neutrophil % 39.8 % (47-70); POSITIVE DIFFERENTIAL YES; Platelet Count 341 K/mm3 (150-450); RBC Distribution Width CV 14.1 % (11.6-14.6); RBC Distribution Width SD 43.3 fl (35.1-43.9); Red Blood Count 5.11 M/mm3 (4.6-6.2); White Blood Count 12.3 K/mm3 (4.4-11.0)
[2018-12-18 18:05] LABS: Differential Indicated SCAN CRITERIA MET
[2018-12-18 18:12] LABS: AST(SGOT) 23 U/L (15-37); Alanine Aminotransfer ALT/SGPT 40 U/L (16-61); Albumin, Serum 3.5 g/dL (3.2-5.0); Alkaline Phosphatase 87 U/L (45-117); Anion Gap 8 (5-15); BUN 11 mg/dL (7-18); Calcium,Total 8.7 mg/dL (8.5-10.1); Chloride 104 mmol/L (98-107); Creatinine, Serum 0.85 mg/dL (0.70-1.30); EST Glomerular Filtration Rate 103 mL/min (>60); Est Glom Filt Rate - Afr Amer 125 mL/min (>60); Globulin 3.6 g/dL (2.2-4.2); Glucose 96 mg/dL (74-106); Potassium 3.6 mmol/L (3.5-5.1); Protein, Total 7.1 g/dL (6.4-8.2); Sodium Level 140 mmol/L (136-145)
[2018-12-18 18:45] LABS: Differential Comment SCANNED
== END ==
PROVIDERS: Family Provider Family Medicine; PCP Family Medicine; Referring Provider Internal Medicine Rheumatology; Visit Provider Internal Medicine Rheumatology
DX: M06.09 Rheumatoid arthritis without rheumatoid factor, multiple sites (principal); Z79.899 Other long term (current) drug therapy; Q66.70 Congenital pes cavus, unspecified foot; M47.897 Other spondylosis, lumbosacral region
CPT/HCPCS: 36415; 80053; 85025

== ENCOUNTER → 2019-03-20 15:31 | Outpatient (CLI) | payer BC, SELFPAY ==
[2019-03-20 17:44] LABS: Absolute Lymphocyte Count 6.19 X10^3/uL (0.83-4.51); Basophil# 0.11 X10^3/uL; Basophil% 0.7 % (0-1); Eosinophil# 0.44 X10^3/uL; Eosinophils% 2.9 % (0-5); Hematocrit 45.1 % (40-54); Hemoglobin 15.3 g/dL (13.0-16.5); Lymphocyte # 6.19 X10^3/ul (4.0); Lymphocyte % 41.5 % (19-41); Mean Corp Hgb Conc 33.9 g/dL (32-36); Mean Corpuscular Hgb 29.2 pg (27.0-32.0); Mean Corpuscular Volume 86.1 fL (80-94); Mean Platelet Vol. 10.6 fl (6.2-12.0); Monocyte# 1.14 X10^3/uL; Monocyte% 7.6 % (0-10); NRBC Flagged by Analyzer 0 % (0-5); POSITIVE DIFFERENTIAL YES; Platelet Count 352 K/mm3 (150-450); RBC Distribution Width CV 13.7 % (11.6-14.6); RBC Distribution Width SD 42.8 fl (35.1-43.9); Red Blood Count 5.24 M/mm3 (4.6-6.2); White Blood Count 14.9 K/mm3 (4.4-11.0)
[2019-03-20 17:56] LABS: AST(SGOT) 21 U/L (15-37); Alanine Aminotransfer ALT/SGPT 32 U/L (16-61); Albumin, Serum 3.7 g/dL (3.2-5.0); Alkaline Phosphatase 85 U/L (45-117); Anion Gap 1 (5-15); BUN 9 mg/dL (7-18); Calcium,Total 9.1 mg/dL (8.5-10.1); Chloride 106 mmol/L (98-107); EST Glomerular Filtration Rate 85 mL/min (>60); Est Glom Filt Rate - Afr Amer 103 mL/min (>60); Globulin 3.6 g/dL (2.2-4.2); Glucose 93 mg/dL (74-106); Potassium 3.7 mmol/L (3.5-5.1); Protein, Total 7.3 g/dL (6.4-8.2); Sodium Level 139 mmol/L (136-145)
[2019-03-20 18:47] LABS: Differential Indicated SCAN CRITERIA MET
[2019-03-20 18:51] LABS: Ovalocyte RARE; Platelet Estimate ADEQUATE (ADEQ); Platelet Morphology LARGE
[2019-03-20 18:52] LABS: Red Cell Morphology N CHROM NORMAL (NORM C&C)
== END ==
PROVIDERS: PCP Family Medicine; Referring Provider Internal Medicine Rheumatology; Visit Provider Internal Medicine Rheumatology
DX: M06.09 Rheumatoid arthritis without rheumatoid factor, multiple sites (principal); Z79.899 Other long term (current) drug therapy; Q66.70 Congenital pes cavus, unspecified foot; M47.897 Other spondylosis, lumbosacral region
CPT/HCPCS: 36415; 80053; 85025

== ENCOUNTER → 2019-09-09 15:19 | Outpatient (CLI) | payer BC, SELFPAY ==
[2019-09-09 17:54] LABS: Absolute Lymphocyte Count 5.01 X10^3/uL (0.83-4.51); Absolute Neutrophil Count 6.4 X10^3/uL (2.0-7.7); Basophil# 0.09 X10^3/uL; Basophil% 0.7 % (0-1); Eosinophil# 0.41 X10^3/uL; Eosinophils% 3.2 % (0-5); Hematocrit 41.1 % (40-54); Lymphocyte # 5.01 X10^3/ul (4.0); Lymphocyte % 38.6 % (19-41); Mean Corp Hgb Conc 34.1 g/dL (32-36); Mean Corpuscular Hgb 28.5 pg (27.0-32.0); Mean Corpuscular Volume 83.7 fL (80-94); Mean Platelet Vol. 10.4 fl (6.2-12.0); Monocyte# 1.09 X10^3/uL; Monocyte% 8.4 % (0-10); NRBC Flagged by Analyzer 0 % (0-5); Neutrophil # 6.35 X10^3/uL (2.7-7.7); Neutrophil % 48.8 % (47-70); POSITIVE DIFFERENTIAL YES; POSITIVE MORPHOLOGY YES; Platelet Count 358 K/mm3 (150-450); RBC Distribution Width CV 14.1 % (11.6-14.6); RBC Distribution Width SD 42.5 fl (35.1-43.9); Red Blood Count 4.91 M/mm3 (4.6-6.2)
[2019-09-09 17:58] LABS: Differential Indicated SCAN CRITERIA MET
[2019-09-09 18:05] LABS: AST(SGOT) 17 U/L (15-37); Alanine Aminotransfer ALT/SGPT 36 U/L (16-61); Albumin, Serum 3.7 g/dL (3.2-5.0); Alkaline Phosphatase 76 U/L (45-117); Anion Gap 4 (5-15); BUN 12 mg/dL (7-18); BUN/Creat Ratio 12.6 RATIO (10-20); Calcium,Total 8.5 mg/dL (8.5-10.1); Chloride 106 mmol/L (98-107); Creatinine, Serum 0.95 mg/dL (0.70-1.30); EST Glomerular Filtration Rate 90 mL/min (>60); Est Glom Filt Rate - Afr Amer 109 mL/min (>60); Globulin 3.6 g/dL (2.2-4.2); Glucose 82 mg/dL (74-106); Potassium 3.6 mmol/L (3.5-5.1); Protein, Total 7.3 g/dL (6.4-8.2); Sodium Level 137 mmol/L (136-145)
[2019-09-09 18:41] LABS: Platelet Estimate ADEQUATE (ADEQ); Red Cell Morphology NORM C+C NORMAL (NORM C&C)
== END ==
PROVIDERS: PCP Family Medicine; Referring Provider Internal Medicine Rheumatology; Visit Provider Internal Medicine Rheumatology
DX: M06.09 Rheumatoid arthritis without rheumatoid factor, multiple sites (principal); Z79.899 Other long term (current) drug therapy; Q66.70 Congenital pes cavus, unspecified foot; M47.897 Other spondylosis, lumbosacral region
CPT/HCPCS: 36415; 80053; 85025

== ENCOUNTER → 2019-12-07 16:50 | Outpatient (CLI) | payer BC, SELFPAY ==
[2019-12-07 18:08] LABS: Absolute Lymphocyte Count 3.94 X10^3/uL (0.83-4.51); Basophil# 0.07 X10^3/uL; Basophil% 0.8 % (0-1); Eosinophil# 0.37 X10^3/uL; Hematocrit 40.4 % (40-54); Hemoglobin 13.5 g/dL (13.0-16.5); Lymphocyte # 3.94 X10^3/ul (4.0); Lymphocyte % 42.9 % (19-41); Mean Corp Hgb Conc 33.4 g/dL (32-36); Mean Corpuscular Volume 83.6 fL (80-94); Mean Platelet Vol. 10.6 fl (6.2-12.0); Monocyte# 0.84 X10^3/uL; Monocyte% 9.1 % (0-10); NRBC Flagged by Analyzer 0 % (0-5); Neutrophil # 3.95 X10^3/uL (2.7-7.7); Platelet Count 334 K/mm3 (150-450); RBC Distribution Width CV 13.2 % (11.6-14.6); RBC Distribution Width SD 40.4 fl (35.1-43.9); Red Blood Count 4.83 M/mm3 (4.6-6.2); White Blood Count 9.2 K/mm3 (4.4-11.0)
[2019-12-07 18:40] LABS: AST(SGOT) 22 U/L (15-37); Alanine Aminotransfer ALT/SGPT 32 U/L (16-61); Albumin, Serum 3.5 g/dL (3.2-5.0); Alkaline Phosphatase 78 U/L (45-117); Anion Gap 6 (5-15); BUN 9 mg/dL (7-18); BUN/Creat Ratio 10.2 RATIO (10-20); Calcium,Total 8.3 mg/dL (8.5-10.1); Chloride 103 mmol/L (98-107); Creatinine, Serum 0.88 mg/dL (0.70-1.30); EST Glomerular Filtration Rate 98 mL/min (>60); Est Glom Filt Rate - Afr Amer 118 mL/min (>60); Globulin 3.5 g/dL (2.2-4.2); Glucose 108 mg/dL (74-106); Potassium 3.3 mmol/L (3.5-5.1); Sodium Level 139 mmol/L (136-145)
== END ==
PROVIDERS: PCP Family Medicine; Referring Provider Internal Medicine Rheumatology; Visit Provider Internal Medicine Rheumatology
DX: M06.09 Rheumatoid arthritis without rheumatoid factor, multiple sites (principal); Z79.899 Other long term (current) drug therapy; Q66.70 Congenital pes cavus, unspecified foot; M47.897 Other spondylosis, lumbosacral region
CPT/HCPCS: 36415; 80053; 85025

== ENCOUNTER → 2020-02-29 11:34 | Outpatient (CLI) | payer BC, SELFPAY ==
[2020-02-29 15:51] LABS: Absolute Lymphocyte Count 3.97 X10^3/uL (0.83-4.51); Absolute Neutrophil Count 8.9 X10^3/uL (2.0-7.7); Basophil# 0.09 X10^3/uL; Basophil% 0.6 % (0-1); Eosinophils% 2.1 % (0-5); Hematocrit 46.3 % (40-54); Hemoglobin 15.4 g/dL (13.0-16.5); Lymphocyte # 3.97 X10^3/ul (4.0); Lymphocyte % 27.9 % (19-41); Mean Corp Hgb Conc 33.3 g/dL (32-36); Mean Corpuscular Hgb 27.5 pg (27.0-32.0); Mean Corpuscular Volume 82.8 fL (80-94); Mean Platelet Vol. 10.1 fl (6.2-12.0); Monocyte# 0.97 X10^3/uL; Monocyte% 6.8 % (0-10); NRBC Flagged by Analyzer 0 % (0-5); Neutrophil # 8.85 X10^3/uL (2.7-7.7); Neutrophil % 62.2 % (47-70); Platelet Count 426 K/mm3 (150-450); RBC Distribution Width SD 41.8 fl (35.1-43.9); Red Blood Count 5.59 M/mm3 (4.6-6.2); White Blood Count 14.2 K/mm3 (4.4-11.0)
[2020-02-29 16:08] LABS: AST(SGOT) 18 U/L (15-37); Alanine Aminotransfer ALT/SGPT 33 U/L (16-61); Albumin, Serum 3.4 g/dL (3.2-5.0); Alkaline Phosphatase 80 U/L (45-117); Anion Gap 8 (5-15); BUN 12 mg/dL (7-18); BUN/Creat Ratio 11.2 RATIO (10-20); Calcium,Total 8.7 mg/dL (8.5-10.1); Chloride 105 mmol/L (98-107); Creatinine, Serum 1.07 mg/dL (0.70-1.30); EST Glomerular Filtration Rate 78 mL/min (>60); Est Glom Filt Rate - Afr Amer 95 mL/min (>60); Globulin 3.4 g/dL (2.2-4.2); Glucose 79 mg/dL (74-106); Potassium 3.5 mmol/L (3.5-5.1); Protein, Total 6.8 g/dL (6.4-8.2); Sodium Level 142 mmol/L (136-145)
== END ==
LOC: MTLAB 11:36
PROVIDERS: PCP Family Medicine; Referring Provider Internal Medicine Rheumatology; Visit Provider Internal Medicine Rheumatology
DX: M06.09 Rheumatoid arthritis without rheumatoid factor, multiple sites (principal); Z79.899 Other long term (current) drug therapy; Q66.70 Congenital pes cavus, unspecified foot; M47.897 Other spondylosis, lumbosacral region
CPT/HCPCS: 36415; 80053; 85025

== ENCOUNTER → 2020-03-01 16:34 | Outpatient (CLI) | payer BC, SELFPAY ==
[2020-03-03 20:07] LABS: QNTFERON TB Mitogen Value > 10.00 IU/mL (.); QNTFERON TB Nil Value 0.05 IU/mL (.); QNTFERON TB1+ Ag Value 0.18 IU/mL (.); QNTFERON TB2+ Ag Value 0.12 IU/mL (.)
[2020-03-04 20:23] LABS: QNTIFERON TB Positive Criteria Negative (Negative)
== END ==
LOC: MTLAB 16:35
PROVIDERS: PCP Family Medicine; Referring Provider Internal Medicine Rheumatology; Visit Provider Internal Medicine Rheumatology
DX: M06.09 Rheumatoid arthritis without rheumatoid factor, multiple sites (principal); Z79.899 Other long term (current) drug therapy; Q66.70 Congenital pes cavus, unspecified foot; M47.897 Other spondylosis, lumbosacral region
CPT/HCPCS: 36415; 86480

== ENCOUNTER → 2020-05-25 16:54 | Outpatient (CLI) | payer BC, SELFPAY ==
[2020-05-25 17:57] LABS: Absolute Neutrophil Count 7.6 X10^3/uL (2.0-7.7); Basophil# 0.08 X10^3/uL; Basophil% 0.7 % (0-1); Eosinophil# 0.24 X10^3/uL; Eosinophils% 2.1 % (0-5); Hematocrit 45.5 % (40-54); Hemoglobin 15.6 g/dL (13.0-16.5); Lymphocyte % 24.7 % (19-41); Mean Corp Hgb Conc 34.3 g/dL (32-36); Mean Corpuscular Hgb 28.3 pg (27.0-32.0); Mean Corpuscular Volume 82.4 fL (80-94); Mean Platelet Vol. 10.4 fl (6.2-12.0); Monocyte# 0.62 X10^3/uL; Monocyte% 5.5 % (0-10); NRBC Flagged by Analyzer 0 % (0-5); Neutrophil # 7.55 X10^3/uL (2.7-7.7); Neutrophil % 66.6 % (47-70); Platelet Count 384 K/mm3 (150-450); RBC Distribution Width CV 13.8 % (11.6-14.6); RBC Distribution Width SD 41.6 fl (35.1-43.9); Red Blood Count 5.52 M/mm3 (4.6-6.2); White Blood Count 11.3 K/mm3 (4.4-11.0)
[2020-05-25 18:39] LABS: ALB/GLOB Ratio 1.1 RATIO (0.9-2.4); AST(SGOT) 22 U/L (15-37); Alanine Aminotransfer ALT/SGPT 35 U/L (16-61); Alkaline Phosphatase 81 U/L (45-117); Anion Gap 4 (5-15); BUN 12 mg/dL (7-18); BUN/Creat Ratio 12.6 RATIO (10-20); Calcium,Total 9.3 mg/dL (8.5-10.1); Chloride 105 mmol/L (98-107); Creatinine, Serum 0.95 mg/dL (0.70-1.30); EST Glomerular Filtration Rate 90 mL/min (>60); Est Glom Filt Rate - Afr Amer 109 mL/min (>60); Globulin 3.5 g/dL (2.2-4.2); Glucose 100 mg/dL (74-106); Potassium 3.9 mmol/L (3.5-5.1); Protein, Total 7.5 g/dL (6.4-8.2); Sodium Level 136 mmol/L (136-145)
== END ==
PROVIDERS: PCP Family Medicine; Referring Provider Internal Medicine Rheumatology; Visit Provider Internal Medicine Rheumatology
DX: M06.09 Rheumatoid arthritis without rheumatoid factor, multiple sites (principal); Z79.899 Other long term (current) drug therapy; Q66.70 Congenital pes cavus, unspecified foot; M47.897 Other spondylosis, lumbosacral region
CPT/HCPCS: 36415; 80053; 85025

== ENCOUNTER → 2020-08-19 15:56 | Outpatient (CLI) | payer BC, SELFPAY ==
[2020-08-19 17:36] LABS: Absolute Lymphocyte Count 4.89 X10^3/uL (0.83-4.51); Absolute Neutrophil Count 7.2 X10^3/uL (2.0-7.7); Basophil# 0.06 X10^3/uL; Basophil% 0.4 % (0-1); Eosinophils% 2.2 % (0-5); Hematocrit 42.1 % (40-54); Hemoglobin 14.3 g/dL (13.0-16.5); Lymphocyte # 4.89 X10^3/ul (0.83-4.51); Lymphocyte % 35.6 % (19-41); Mean Corpuscular Hgb 28.4 pg (27.0-32.0); Mean Corpuscular Volume 83.5 fL (80-94); Mean Platelet Vol. 10.4 fl (6.2-12.0); Monocyte# 1.17 X10^3/uL; Monocyte% 8.5 % (0-10); NRBC Flagged by Analyzer 0 % (0-5); Neutrophil # 7.24 X10^3/uL (2.7-7.7); Neutrophil % 52.9 % (47-70); Platelet Count 330 K/mm3 (150-450); RBC Distribution Width CV 14.2 % (11.6-14.6); RBC Distribution Width SD 43.2 fl (35.1-43.9); Red Blood Count 5.04 M/mm3 (4.6-6.2); White Blood Count 13.7 K/mm3 (4.4-11.0)
[2020-08-19 17:45] LABS: ALB/GLOB Ratio 1.1 RATIO (0.9-2.4); AST(SGOT) 18 U/L (15-37); Alanine Aminotransfer ALT/SGPT 36 U/L (16-61); Albumin, Serum 3.7 g/dL (3.2-5.0); Alkaline Phosphatase 87 U/L (45-117); Anion Gap 7 (5-15); BUN 15 mg/dL (7-18); BUN/Creat Ratio 17.1 RATIO (10-20); Calcium,Total 8.9 mg/dL (8.5-10.1); Chloride 104 mmol/L (98-107); Creatinine, Serum 0.88 mg/dL (0.70-1.30); EST Glomerular Filtration Rate 98 mL/min (>60); Est Glom Filt Rate - Afr Amer 119 mL/min (>60); Globulin 3.4 g/dL (2.2-4.2); Glucose 88 mg/dL (74-106); Potassium 3.6 mmol/L (3.5-5.1); Protein, Total 7.1 g/dL (6.4-8.2); Sodium Level 139 mmol/L (136-145)
== END ==
PROVIDERS: PCP Family Medicine; Referring Provider Internal Medicine Rheumatology; Visit Provider Internal Medicine Rheumatology
DX: M06.09 Rheumatoid arthritis without rheumatoid factor, multiple sites (principal); Z79.899 Other long term (current) drug therapy; Q66.70 Congenital pes cavus, unspecified foot; M47.897 Other spondylosis, lumbosacral region
CPT/HCPCS: 36415; 80053; 85025

== ENCOUNTER → 2021-12-05 | Outpatient (CLI) | payer BC, SELFPAY ==
--- NOTE | 2021-12-05 17:30 | MRI_ITS ---
EXAM: MR RIGHT LOWER EXTREMITY WITHOUT INTRAVENOUS CONTRAST, KNEE CLINICAL INDICATION: RIGHT knee pain TECHNIQUE: Multiplanar and multisequence MR images of the right knee without intravenous contrast. This report was created using [employer] report [employer] technology. COMPARISON: None. 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 No marrow signal alterations. EXTENSOR MECHANISM: Extensor mechanism is intact. MEDIAL MENISCUS: Longitudinal horizontal oblique tear of the posterior horn of the medial meniscus. LATERAL MENISCUS: Unremarkable. MEDIAL CAPSULE/SUPPORTING STRUCTURES: Unremarkable. Intact. LATERAL CAPSULE/SUPPORTING STRUCTURES: Unremarkable. Lateral collateral ligamentous complex, inclusive of the popliteal tendon, are intact. ANTERIOR CRUCIATE LIGAMENT: Cruciate ligaments are intact. POSTERIOR CRUCIATE LIGAMENT: See above. MUSCLES: Muscles are unremarkable. CARTILAGE: Unremarkable. Intact. FLUID: Moderate-sized Quarles''s cyst with no evidence of leakage or rupture. This measures an anterior to posterior dimension of 3.3 cm and a craniocaudal dimension of 5.7 cm. At least a small amount of suprapatellar joint effusion without intra-articular ossific bodies. OTHER SOFT TISSUES: See above. OTHER FINDINGS: Medial and lateral supporting structures are intact. Neurovascular structures are unremarkable. MRI/Lower Ext Joint Only (Routine) IMPRESSION: 1. Longitudinal horizontal oblique tear of the posterior horn of the medial meniscus. 2. 5.7 cm Quarles''s cyst without leakage or rupture. Electronically Signed: Shelton Fritz MD at 20:29 EDT ,
== END | disposition home or self-care (01) ==
PROVIDERS: PCP Family Medicine; Visit Provider Orthopaedic Surgery
DX: M25.561 Pain in right knee (principal)
CPT/HCPCS: 73721

== ENCOUNTER → 2022-03-15 | Outpatient (CLI) | payer BC, SELFPAY ==
--- NOTE | 2022-03-15 08:19 | EKG12_ITS ---
Test Reason : PRE OP Blood Pressure : / mmHG Vent. Rate : 079 BPM Atrial Rate : 079 BPM P-R Int : 156 ms QRS Dur : 092 ms QT Int : 378 ms P-R-T Axes : 059 -16 056 degrees QTc Int : 433 ms Normal sinus rhythm with sinus arrhythmia Normal ECG Confirmed by WALE SALGUERO, AIDEE ([id number]), editor index SLADE BRICE ([id number]) on 03/16/2022 9:02:40 AM Referred By: CAMERON Confirmed By:DOMO ECHEVARRIA MD
[2022-03-15 10:01] LABS: Absolute Lymphocyte Count 2.77 X10^3/uL (0.83-4.51); Absolute Neutrophil Count 4.4 X10^3/uL (2.0-7.7); Basophil# 0.09 X10^3/uL; Basophil% 1.1 % (0-1); Eosinophil# 0.52 X10^3/uL; Eosinophils% 6.1 % (0-5); Hematocrit 43.9 % (40-54); Hemoglobin 14.9 g/dL (13.0-16.5); Lymphocyte # 2.77 X10^3/ul (0.83-4.51); Lymphocyte % 32.4 % (19-41); Mean Corp Hgb Conc 33.9 g/dL (32-36); Mean Corpuscular Hgb 28.1 pg (27.0-32.0); Mean Corpuscular Volume 82.7 fL (80-94); Monocyte# 0.69 X10^3/uL; Monocyte% 8.1 % (0-10); NRBC Flagged by Analyzer 0 % (0-5); Neutrophil # 4.44 X10^3/uL (2.7-7.7); Neutrophil % 51.9 % (47-70); Platelet Count 373 K/mm3 (150-450); RBC Distribution Width CV 13.9 % (11.6-14.6); RBC Distribution Width SD 41.8 fl (35.1-43.9); Red Blood Count 5.31 M/mm3 (4.6-6.2); White Blood Count 8.5 K/mm3 (4.4-11.0)
[2022-03-15 10:39] LABS: Anion Gap 8 (5-15); BUN 11 mg/dL (7-18); BUN/Creat Ratio 11.5 RATIO (10-20); Calcium,Total 8.9 mg/dL (8.5-10.1); Chloride 106 mmol/L (98-107); Creatinine, Serum 0.96 mg/dL (0.70-1.30); EST Glomerular Filtration Rate 88 mL/min (>60); Est Glom Filt Rate - Afr Amer 107 mL/min (>60); Glucose 85 mg/dL (74-106); Potassium 3.8 mmol/L (3.5-5.1); Sodium Level 143 mmol/L (136-145)
== END | disposition home or self-care (01) ==
PROVIDERS: PCP Family Medicine; Visit Provider Orthopaedic Surgery
DX: Z01.818 Encounter for other preprocedural examination (principal); Z01.810 Encounter for preprocedural cardiovascular examination; I10 Essential (primary) hypertension
CPT/HCPCS: 36415; 80048; 85025; 87635; 93005; C9803; U0003; U0005